=== PATIENT | female | born 1970 | race Caucasian/White ===

== ENCOUNTER 2020-09-04 15:29 | Outpatient (REF) | payer BC, SELFPAY | END 2020-09-04 15:30 | disposition home or self-care (01) | LOC: HO.LAB 15:29 | PROVIDERS: Visit Provider Internal Medicine | DX: Z20.822 Contact with and (suspected) exposure to COVID-19 (principal) | CPT/HCPCS: 36415; C9803; U0003; U0005 ==

== ENCOUNTER → 2020-09-13 15:54 | Outpatient (BNVA) | payer BC, SELFPAY | PROVIDERS: PCP Internal Medicine; Visit Provider Surgery ==

== ENCOUNTER 2020-11-22 16:16 | Outpatient (REF) | payer BC, SELFPAY ==
--- NOTE | ~2020-11-22 | MR_ITS ---
EXAMINATION: MR BREAST WITHOUT AND WITH CONTRAST, BILATERAL CLINICAL INFORMATION: High-risk screening. Family history breast cancer. COMPARISON: MRI 12/06/2019, 10/26/2018 TECHNIQUE: Imaging was performed with a dedicated breast coil. Prior to the administration of contrast, bilateral axial T1 and bilateral axial T2 weighted sequences were obtained. After the uneventful administration of?10 mL of Gadavist, dynamic contrast-enhanced VIBRANT series through the breasts in the axial plane were performed. Subtracted images were performed and reviewed. A delayed sagittal sequence through both breasts was acquired. Additionally, CAD post-processing, including maximum intensity projections, 3-D reconstructions and kinetic analysis, were performed an independent workstation and reviewed by the interpreting radiologist is a portion of this exam. FINDINGS: The patient's fibroglandular tissue demonstrates moderate background enhancement. LEFT BREAST: No suspicious masslike or non-masslike enhancement. No abnormal skin thickening or nipple retraction. No abnormal architectural distortion. Review of the T2 weighted images demonstrates no fibrocystic changes or dilated ducts. Review of kinetic images reveals no additional findings. RIGHT BREAST: No suspicious masslike or non-masslike enhancement. No abnormal skin thickening or nipple retraction. No abnormal architectural distortion. Review of the T2 weighted images demonstrates no fibrocystic changes or dilated ducts. Review of kinetic images reveals no additional findings. There is no suspicious internal mammary chain or axillary adenopathy. Limited views of the chest and abdomen are unremarkable. MR/MR breast BI wo/w con IMPRESSION: No MR specific evidence of malignancy. ASSESSMENT: LEFT BREAST: BI-RADS 1-Negative RIGHT BREAST: BI-RADS 1-Negative RECOMMENDATIONS: Clinical follow-up. Continued annual mammographic surveillance. Further breast MRI as risk factors dictate.
== END 2020-11-22 16:17 | disposition home or self-care (01) ==
LOC: HO.MRI 16:16
PROVIDERS: Visit Provider Surgery
DX: Z12.31 Encounter for screening mammogram for malignant neoplasm of breast (principal)
CPT/HCPCS: 77049; A9585

== ENCOUNTER 2021-06-19 13:39 | Outpatient (REF) | payer BC, SELFPAY ==
[2021-06-19 14:09] LABS: COVID-19 Test Positive (Negative)
== END 2021-06-19 13:40 | disposition home or self-care (01) ==
LOC: HO.LAB 13:39
PROVIDERS: Visit Provider Internal Medicine
DX: Z20.822 Contact with and (suspected) exposure to COVID-19 (principal)
CPT/HCPCS: 36415; 87635; C9803

== ENCOUNTER 2021-08-09 13:33 | Outpatient (REF) | payer BC, SELFPAY ==
--- NOTE | ~2021-08-09 | MM_ITS ---
EXAMINATION: MM SCREENING DIGITAL BREAST TOMOSYNTHESIS, BILATERAL CLINICAL INFORMATION: Screening. Asymptomatic. Family history breast cancer, mother. The lifetime risk of breast cancer based on the Tyrer-Cuzick Model is 19.5%. COMPARISON: Mammography: 04/18/2019, 04/07/2018, outside mammography 11/14/2016, 11/12/2015 ([facility]), MRI breasts 11/22/2020. TECHNIQUE: Digital breast tomosynthesis is performed in both the craniocaudal and mediolateral oblique views along with computer-aided detection (CAD). Synthesized 2D images are generated from the tomosynthesis. FINDINGS: There are scattered areas of fibroglandular density (ACR BI-RADS breast composition Category b). There are no significant masses, abnormal calcifications, or other abnormalities. Parenchymal pattern is similar to prior studies. There is no developing density or architectural abnormality. The axilla and skin contours are unremarkable. No significant changes. MM/MM tomosynthesis screening BI IMPRESSION: No mammographic evidence of malignancy. ASSESSMENT: BI-RADS 1: Negative RECOMMENDATION: Routine annual mammography screening. This patient's information was entered into a reminder system with a target due date for their next mammogram.
== END 2021-08-09 13:34 | disposition home or self-care (01) ==
LOC: HO.MAMMO 13:33
PROVIDERS: Absent Provider Nurse Practitioner Adult Health; PCP Internal Medicine; Visit Provider Surgery
DX: Z12.31 Encounter for screening mammogram for malignant neoplasm of breast (principal)
CPT/HCPCS: 77063; 77067

== ENCOUNTER → 2021-09-04 15:51 | Outpatient (BNVA) | payer BC, SELFPAY | PROVIDERS: PCP Internal Medicine; Visit Provider Surgery | DX: Z91.89 Other specified personal risk factors, not elsewhere classified (principal) ==

== ENCOUNTER 2022-01-15 15:00 | Outpatient (REF) | payer BC, SELFPAY ==
--- NOTE | ~2022-01-15 | MR_ITS ---
EXAMINATION: MR BREAST WITHOUT AND WITH CONTRAST, BILATERAL CLINICAL INFORMATION: High risk screening. Patient questionnaire indicates mother and grandmother diagnosed with breast cancer in their 60s. The estimated lifetime risk of developing breast cancer is 20%. COMPARISON: Portions of a previous study 11/22/2020, Mammography (nondiagnostic monitor review): 08/09/2021. TECHNIQUE: A 1.5 T system and a dedicated breast coil. T1-weighted sequences without fat-saturation were obtained prior to the administration of contrast. Fat-saturated T1 and T2-weighted sequences were also acquired. The patient received 10 mL of IV gadolinium-based contrast, Gadavist. Multiple sequential dynamic T1-weighted sequences were obtained through both breasts with fat-saturation. Subtracted images were reviewed. CAD postprocessing with 3-D reconstructions, maximum intensity projections and kinetic analysis was performed by the interpreting radiologist at an independent workstation and reviewed as a portion of this exam. FINDINGS: There is some motion artifact which limits the exam. Amount of Remaining Fibroglandular Signal: There are scattered areas of fibroglandular tissue (ACR BI-RADS breast composition category B).* Background Parenchymal Enhancement: Minimal. Symmetry of Background Enhancement: Symmetric. RIGHT BREAST: There are no suspicious findings. Masses: There are no suspicious enhancing masses. Non-mass Enhancement: There is no suspicious non-mass enhancement. Focus: There are no suspicious enhancing foci. Non-enhancing Findings: Associated Findings: There are no suspicious associated findings. Kinetic Curve Assessment: Initial Phase: There are no suspicious areas of color signal. Delayed Phase: There are no areas of washout kinetics. LEFT BREAST: There are no suspicious findings. Masses: There are no suspicious enhancing masses. Non-mass Enhancement: There is no suspicious non-mass enhancement. Focus: There are no suspicious enhancing foci. Non-enhancing Findings: Associated Findings: There are no suspicious associated findings. Kinetic Curve Assessment: Initial Phase: There are no areas of suspicious color signal. Delayed Phase: There are no areas of washout kinetics. The axillary lymph nodes are morphologically normal. No suspicious internal mammary lymph nodes are seen. No suspicious abnormality in the visualized portions of chest or abdomen. MR/MR breast BI wo/w con IMPRESSION: 1. No MR evidence of malignancy. 2. No suspicious interval change. ASSESSMENT: Right Breast: ACR BI-RADS 1: Negative examination. Left Breast: ACR BI-RADS 1: Negative examination. RECOMMENDATIONS: Recommend annual high risk screening MRI in patients with an estimated lifetime risk of developing breast cancer equal to or greater than 20%.
== END 2022-01-15 15:01 | disposition home or self-care (01) ==
LOC: HO.MRI 15:00
PROVIDERS: PCP Internal Medicine; Visit Provider Surgery
DX: Z91.89 Other specified personal risk factors, not elsewhere classified (principal); Z80.3 Family history of malignant neoplasm of breast
CPT/HCPCS: 77049; A9585

== ENCOUNTER 2022-08-12 15:51 | Outpatient (REF) | payer BC, SELFPAY ==
--- NOTE | ~2022-08-12 | MM_ITS ---
EXAMINATION: MM SCREENING DIGITAL BREAST TOMOSYNTHESIS, BILATERAL CLINICAL INFORMATION: Screening. Asymptomatic. The lifetime risk of breast cancer based on the Tyrer-Cuzick Model is 18.8%. COMPARISON: Mammography: August 09, 2021 and studies dating back to November 12, 2015 TECHNIQUE: Digital breast tomosynthesis is performed in both the craniocaudal and mediolateral oblique views along with computer-aided detection (CAD). Synthesized 2D images are generated from the tomosynthesis. FINDINGS: There are scattered areas of fibroglandular density (ACR BI-RADS breast composition Category b). There are no significant masses, abnormal calcifications, or other abnormalities. MM/MM tomosynthesis screening BI IMPRESSION: No significant changes from prior exam. ASSESSMENT: BI-RADS 1: Negative RECOMMENDATION: Routine annual mammography screening. This patient's information was entered into a reminder system with a target due date for their next mammogram.
== END 2022-08-12 15:52 | disposition home or self-care (01) ==
LOC: HO.MAMMO 15:51
PROVIDERS: Visit Provider Internal Medicine
DX: Z12.31 Encounter for screening mammogram for malignant neoplasm of breast (principal)
CPT/HCPCS: 77063; 77067

== ENCOUNTER → 2022-09-03 14:35 | Outpatient (BNVA) | payer SELFPAY | PROVIDERS: PCP Internal Medicine; Visit Provider Surgery | DX: Z91.89 Other specified personal risk factors, not elsewhere classified (principal); Z80.3 Family history of malignant neoplasm of breast ==

== ENCOUNTER 2023-03-24 16:20 | Outpatient (REF) | payer BC, SELFPAY ==
--- NOTE | ~2023-03-24 | MR_ITS ---
EXAMINATION: MR BREAST WITHOUT AND WITH CONTRAST, BILATERAL CLINICAL INFORMATION: 53-year-old for high-risk screening mother and grandmother with breast cancer COMPARISON: MRI 01/15/2022, 11/22/2020, 12/06/2019 and 10/26/2018. Correlation to mammogram of 08/12/2022 TECHNIQUE: Imaging was performed with a dedicated breast coil. Prior to the administration of contrast, bilateral axial T1 and bilateral axial T2 weighted sequences were obtained. After the uneventful administration of?10 mL of Gadavist, dynamic contrast-enhanced VIBRANT series through the breasts in the axial plane were performed. Subtracted images were performed and reviewed. A delayed sagittal sequence through both breasts was acquired. Additionally, CAD post-processing, including maximum intensity projections, 3-D reconstructions and kinetic analysis, were performed an independent workstation and reviewed by the interpreting radiologist is a portion of this exam. FINDINGS: The patient's fibroglandular tissue demonstrates minimal background enhancement. LEFT BREAST: No suspicious masslike or non-masslike enhancement. No abnormal skin thickening or nipple retraction. No abnormal architectural distortion. Review of the T2 weighted images demonstrates no fibrocystic changes or dilated ducts. Review of kinetic images reveals no additional findings. RIGHT BREAST: No suspicious masslike or non-masslike enhancement. No abnormal skin thickening or nipple retraction. No abnormal architectural distortion. Review of the T2 weighted images demonstrates no fibrocystic changes or dilated ducts. Review of kinetic images reveals no additional findings. There is no suspicious internal mammary chain or axillary adenopathy. Limited views of the chest and abdomen are unremarkable. MR/MR breast BI wo/w con IMPRESSION: No MR specific evidence of malignancy. ASSESSMENT: LEFT BREAST: BI-RADS 1-Negative RIGHT BREAST: BI-RADS 1-Negative RECOMMENDATIONS: Routine mammographic imaging as per most recent study and MRI as per high-risk protocol.
[2023-03-24] MEDS: gadobutroL 10 ML VIAL IVPUSH (17:40)
== END 2023-03-24 16:21 | disposition home or self-care (01) ==
LOC: HO.MRI 16:20
PROVIDERS: PCP Internal Medicine; Visit Provider Surgery
DX: Z91.89 Other specified personal risk factors, not elsewhere classified (principal); Z80.3 Family history of malignant neoplasm of breast
CPT/HCPCS: 77049; A9585

== ENCOUNTER 2023-04-09 20:53 | Emergency (ER) | payer BC, SELFPAY ==
--- NOTE | ~2023-04-09 | CT_ITS ---
EXAMINATION: CT ABDOMEN AND PELVIS WITH CONTRAST CLINICAL INFORMATION: Mid/lower abdominal pain, diarrhea COMPARISON: None available. TECHNIQUE: Multidetector volumetric images were obtained from the superior aspect of the liver through the pubic symphysis following administration 85 mL of Omnipaque 350 intravenous contrast. Sagittal and coronal reformatted images were obtained on the technologist's workstation. Oral contrast: No This CT examination was performed using dose optimization techniques as appropriate, variously including the following: *Automated exposure control *Adjustment of mA and/or kV according to patient size (this includes techniques or standardized protocols for targeted exams where dose is matched to indication/reason for exam; i.e. extremities or head) *Use of iterative reconstruction technique DLP: 787 mGy-cm FINDINGS: LUNG BASES: The visualized lung bases are unremarkable. LIVER, GALLBLADDER, AND BILIARY TREE: The liver is normal in size, shape, and attenuation. No focal hepatic lesion or biliary ductal dilatation is present. The gallbladder is unremarkable with no evidence of radiopaque gallstones, gallbladder wall thickening, or obvious pericholecystic inflammatory changes. PANCREAS: Unremarkable. SPLEEN: Unremarkable. ADRENAL GLANDS: Unremarkable. KIDNEYS AND URETERS: Bilateral nephrograms are symmetric. No hydronephrosis or obstructing calculus identified. BLADDER: Unremarkable. GASTROINTESTINAL TRACT: No evidence of bowel obstruction. There is colonic diverticulosis with associated inflammation at the descending/sigmoid colon junction consistent with diverticulitis. No pericolonic abscess or free air identified. The appendix is unremarkable. No free fluid identified. ABDOMINAL WALL: No significant hernia is appreciated. LYMPH NODES: Normal. VASCULAR: Scattered atherosclerotic calcification. PELVIC VISCERA: Unremarkable. OSSEOUS STRUCTURES: Unremarkable. CT/CT abdomen pelvis w IV con IMPRESSION: Diverticulitis at the descending/sigmoid colon junction. Correlation with recent or followup colonoscopy is advised to exclude an underlying mass lesion.
[2023-04-09 21:38] VITALS: BP 107/82; PULSE 69; RESP 18; TEMP 36.4; O2SAT 99; BMI 37.6
--- NOTE | 2023-04-09 21:53 | ED_ITS ---
HPI - Abdominal Pain General Chief Complaint: Abdominal Pain Stated Complaint: abd pain Time Seen by Provider: 04/09/23 21:21 Source: patient Mode of arrival: ambulatory Limitations: no limitations History of Present Illness HPI narrative: patient is a 53-year-old female who presents emergency department for evaluation of abdominal pain. She states that 4 nights ago she experienced an episode of awaking with cold sweats, severe abdominal bloating that was alleviated after having vomited and loose liquid diarrhea without hematochezia or melena. She endorses episodes that occur like this 3-4 times annually, at this time with unknown etiology. She has mentioned it to her primary care provider but has not had any significant workup for it. Her pain and bloating was resolved after episode of vomiting and diarrhea. following that she felt constipated with significant abdominal distention and pain. Typically she moves her bowels daily. She tried Dulcolax in addition to magnesium citrate last night. She does endorse having a liquid stool, but continues to have pain. Localizes pain to the umbilical region. She has had no further episodes of vomiting since 4 days ago. Denies fevers, URI symptoms, known sick contacts, chest pain, shortness of breath. She has had a colonoscopy approximately 2 years ago with polypectomy that was reportedly benign. She has a significant family gastrointestinal history; a brother and a maternal cousin with colon cancer, a father with ulcerative colitis, and mother with diverticulitis and Crohn's disease. Related Data Home Medications Medication Instructions Recorded Confirmed atorvastatin 80 mg tablet 80 mg PO DAILY 09/13/20 09/03/22 semaglutide 1 mg/dose (4 mg/3 mL) mg subcut 09/04/21 09/03/22 subcutaneous pen injector (Ozempic) Previous Rx's Medication Instructions Recorded amoxicillin 875 mg-potassium 1 tab PO BID #20 tabs 04/10/23 clavulanate 125 mg tablet ondansetron 4 mg disintegrating 4 mg PO Q6-8H PRN nausea and 04/10/23 tablet vomiting #20 tabs pantoprazole 40 mg tablet,delayed 40 mg PO DAILY #30 tabs 04/10/23 release (Protonix) Allergies Allergy/AdvReac Type Severity Reaction Status Date / Time No Known Allergies Allergy Verified 09/03/22 14:57 Review of Systems Review of Systems Yes all other systems are reviewed and are negative PMFSH Past Medical History Attestation statement: The following information was validated with the patient. Source: old records reviewed Medical History At high risk for breast cancer Family history of breast cancer Family history of ovarian cancer Surgical History History of delivery (1996) Family History Family History Maternal Aunt Ovarian cancer Family/Other Colon cancer Mother Breast cancer Brother Colon cancer Daughter Endometriosis Social History Social History Alcohol intake: never Patient Tobacco Use Status: Never used Tobacco Smoked in Last 30 Days: No Use of substances other than those prescribed or required for medical reasons: No Advance Directives: No Advance Directives Information Provided: No Physical Exam ED Vital Signs: Vital Signs - 24 hr 04/09/23 21:38 Temperature 97.5 F Pulse Rate 69 Respiratory Rate 18 Blood Pressure 107/82 Pulse Oximetry 99 Oxygen Delivery Method Room Air BMI result Body Mass Index 37.6 Appearance: Alert.?Oriented to person, place and time. No acute distress.?Normal affect. Eyes: Pupils equal, round and reactive to light.? ENT: Pharynx normal.?? Neck: Normal inspection.? Neck supple.?? CVS: Heart sounds normal. Normal heart rate and rhythm.? Pulses normal.?? Respiratory: No respiratory distress.? Lung sounds clear to auscultation bilaterally?? Abdomen: Soft With mid ABD tenderness and diffuse lower abdominal tenderness upon palpation. No rigidity. No guarding. No rebound tenderness. No CVA tenderness. Normoactive bowel sounds. No pulsatile mass.?? Skin: Skin warm and dry.? Normal skin color.? Extremities: No lower extremity edema.? Neuro: Moves all extremities spontaneously. Sensation intact bilaterally. CN II- XII intact. No focal neuro deficits. Ambulates with normal steady gait. Course Reevaluation(s) Reevaluation #1: Patient noted to have elevated inflammatory markers with ESR of 27 and CRP of 3.39 concern for possible underlying IBD, though she has had a colonoscopy within the last 2 years which reportedly did not show any evidence of this. lipase is mildly elevated at 118, no right upper quadrant tenderness upon evaluation, bedside ultrasound performed by ED attending Dr. Crowder without concerning findings, less likely acute cholecystitis at this time. CT of abdomen and pelvis at this time revealing uncomplicated diverticulitis; CBC is without leukocytosis or anemia, and CMP is otherwise overall unremarkable. Will treat diverticulitis with oral Augmentin at this time she received first dose in the emergency department. Reviewed worrisome signs and symptoms that would warrant re-evaluation in the emergency department. All questions answered. Advised outpatient follow-up with Gastroenterology. Time: 00:03 Medical Decision Making Medical Decision Making MDM Narrative: Patient is a 53 old female who presents emergency department for evaluation of abdominal pain as per HPI. At the time of my examination she is overall well- appearing, nontoxic, afebrile without tachycardia. She does have notable tenderness upon palpation of the abdomen. Will obtain CBC to evaluate for leukocytosis/ anemia, CMP and lipase to evaluate for abnormal electrolytes /abnormal renal function/ abnormal hepatic/biliary function, EKG and troponin to evaluate for ischemia/ACS, CT of the abdomen and pelvis, and Urinalysis. Differential Diagnosis Differential Diagnoses: The differential diagnosis associated with the presentation includes ( diverticulitis, colitis, appendicitis, bowel obstruction, IBS, IBD, gastroenteritis, constipation) Admission/Observation Consideration of admission/observation: Escalation of care including admission/observation considered ( I considered admission for abdominal pain, see course narrative for further detail) Lab Data MDM Lab Attestation statement: I reviewed the patient's lab results. ( see course narrative for further detail) 04/09/23 22:11 04/09/23 22:11 Labs: Lab Results 04/09/23 04/09/23 Range/Units 22:11 23:07 WBC 6.1 (4.8-10.8) X10*3/uL RBC 4.26 (4.20-5.50) X10*6/uL Hgb 13.0 (12.0-16.0) g/dl Hct 39.3 (37.0-47.0) % MCV 92.3 (80.0-98.0) fL MCH 30.5 (27.0-33.0) pg MCHC 33.1 (31.0-35.0) g/dl RDW 12.5 (11.0-16.0) % Plt Count 250 (160-400) X10*3/uL MPV 10.2 (9.4-12.3) fL Immature Gran % (Auto) 0.2 (0.0-0.4) % Neut % (Auto) 61.5 (45-73) % Lymph % (Auto) 26.0 (20-40) % [place] % (Auto) 9.0 (2-11) % Eos % (Auto) 2.5 (0-4) % Baso % (Auto) 0.8 (0-2) % Lymph # (Auto) 1.6 (1.2-4.9) X10*3/uL [place] # (Auto) 0.6 (0.1-1.2) X10*3/uL Eos # (Auto) 0.2 (0.0-0.4) X10*3/uL Baso # (Auto) 0.1 (0.0-0.2) X10*3/uL Abs Immat Gran (auto) 0.01 (0.00-0.03) X10*3/uL Absolute Neuts (auto) 3.8 (2.0-8.3) x10*3/uL Absolute Nucleated RBC 0.000 (0.0-0.012) X10*3/uL Nucleated RBC % (auto) 0.0 (0.0-0.2) /100WBC ESR 27 H (0-20) MM/HR Sodium 141 (135-145) mmol/L Potassium 4.0 (3.3-5.1) mmol/L Chloride 106 (96-108) mmol/L Carbon Dioxide 26 (22-29) mmol/L Anion Gap 13 (12-20) BUN 17 H (9-16) mg/dL Creatinine 0.75 (0.5-1.4) mg/dL Estim Creat Clear Calc 94.7 Estimated GFR > 60 Random Glucose 109 (60-115) mg/dL Calcium 9.7 (8.4-10.2) mg/dL Magnesium 2.3 (1.6-2.6) mg/dL Total Bilirubin 0.4 (0.0-1.0) mg/dL AST 22 (5-31) U/L ALT 26 (0-31) U/L Alkaline Phosphatase 77 (39-117) U/L C-Reactive Protein 3.39 H (< or = 0.50) mg/dL Total Protein 7.7 (6.5-8.0) g/dL Albumin 4.4 (3.5-5.0) g/dL Lipase 118 H (8-78) U/L Radiology Impression Discussion of test interpretation with radiology: I have reviewed the radiologist's reading. Radiologist Impression: CT/CT abdomen pelvis w IV con IMPRESSION: Diverticulitis at the descending/sigmoid colon junction. Correlation with recent or followup colonoscopy is advised to exclude an underlying mass lesion. Independent Historian Clinical information obtained from an independent historian. History obtained from or confirmed by: Spouse ( present at bedside who confirms history) Prescription Management I considered prescription management with: Antibiotic Medications Administered Discontinued Medications Generic Name Dose Route Start Last Admin Trade Name Freq PRN Reason Stop Dose Admin Amoxicillin/Clavulanate Potassium 875 mg 04/10/23 00:07 04/10/23 01:07 Amoxicillin/Potassium Clav 875 Mg Tablet PO 04/10/23 00:08 875 mg ONCE ONE Administration Sodium Chloride 1,000 mls @ 999 mls/hr 04/09/23 22:00 04/09/23 23:08 Ns IV 04/09/23 23:00 999 mls/hr .Q1H1M SHERIN Administration Iohexol 85 ml 04/09/23 23:28 04/09/23 23:28 Iohexol 350 Mg/Ml 100 Ml Infus..Btl IV 04/09/23 23:29 85 ml ONCE ONE Administration Discharge Plan Discharge Clinical Impression: Diverticulitis Patient Disposition: Home, Self-Care Instructions: Diverticulitis (ED), Diverticulitis Diet (ED) Additional Instructions: Clear liquids advance as tolerated Antibiotic as prescribed Follow-up with heel seat flap stapler for further evaluation including endoscopy Report to the ER if increased pain/fever Follow-up with your PCP for H pylori testing/endoscopy Prescriptions: New amoxicillin-pot clavulanate 875-125 mg tablet 1 tab PO BID Qty: 20 0RF pantoprazole [Protonix] 40 mg tablet,delayed release (DR/EC) 40 mg PO DAILY Qty: 30 0RF ondansetron 4 mg tablet,disintegrating 4 mg PO Q6-8H PRN (Reason: nausea and vomiting) Qty: 20 0RF No Action atorvastatin 80 mg tablet 80 mg PO DAILY Ozempic 1 mg/dose (4 mg/3 mL) pen injector subcut Referrals: Ira Holman MD [Physician] - 2 weeks
[2023-04-09 22:18] LABS: MANUAL DIFF FLAG NO
[2023-04-09 22:20] LABS: Basophils Absolute Auto 0.1 X10*3/uL (0.0-0.2); Basophils Percent Auto 0.8 % (0-2); Eosinophils Absolute Auto 0.2 X10*3/uL (0.0-0.4); Eosinophils Percent Auto 2.5 % (0-4); Hematocrit 39.3 % (37.0-47.0); Imm Gran Abs Auto 0.01 X10*3/uL (0.00-0.03); Imm Gran Pct Auto 0.2 % (0.0-0.4); Lymphocytes Absolute Auto 1.6 X10*3/uL (1.2-4.9); Mean Corpuscular HGB Conc 33.1 g/dl (31.0-35.0); Mean Corpuscular Hemoglobin 30.5 pg (27.0-33.0); Mean Corpuscular Volume 92.3 fL (80.0-98.0); Mean Platelet Volume 10.2 fL (9.4-12.3); Monocytes Absolute Auto 0.6 X10*3/uL (0.1-1.2); Neutrophils Absolute Auto 3.8 x10*3/uL (2.0-8.3); Neutrophils Percent Auto 61.5 % (45-73); Platelet Count 250 X10*3/uL (160-400); Red Blood Count 4.26 X10*6/uL (4.20-5.50); Red Cell Distribution Width 12.5 % (11.0-16.0); White Blood Count 6.1 X10*3/uL (4.8-10.8)
[2023-04-09 22:35] LABS: Alanine Aminotransferase 26 U/L (0-31); Albumin Level 4.4 g/dL (3.5-5.0); Alkaline Phosphatase 77 U/L (39-117); Anion Gap 13 (12-20); Aspartate Amino Transferase 22 U/L (5-31); Bilirubin Total 0.4 mg/dL (0.0-1.0); Blood Urea Nitrogen 17 mg/dL (9-16); C Reactive Protein 3.39 mg/dL (< or = 0.50); Calcium 9.7 mg/dL (8.4-10.2); Carbon Dioxide 26 mmol/L (22-29); Chloride 106 mmol/L (96-108); Creatinine Clr Calc Pharmacy 94.7; Estimated Glomerular Filt Rate > 60; Glucose Random 109 mg/dL (60-115); Lipase 118 U/L (8-78); Magnesium 2.3 mg/dL (1.6-2.6); Sodium 141 mmol/L (135-145); Total Protein 7.7 g/dL (6.5-8.0)
[2023-04-09] MEDS: 0.9 % Sodium Chloride 1,000 ML 999 ML IV (23:08)
[2023-04-09] MEDS: iohexoL 350 MG/ML 100 ML INFUS..BTL 85 ML IV (23:28)
[2023-04-09 23:45] LABS: Erythrocyte Sedimentation Rate 27 MM/HR (0-20)
[2023-04-10] MEDS: Amoxicillin/Potassium Clav 875 MG TABLET PO (01:07)
[2023-04-10 01:10] VITALS: BP 110/68; PULSE 68; RESP 18; O2SAT 97
== END 2023-04-10 01:15 | disposition home or self-care (01) ==
PROVIDERS: Nurse Practitioner Family; Emergency Provider Internal Medicine; PCP Internal Medicine
DX: K57.32 Diverticulitis of large intestine without perforation or abscess without bleeding (principal)
CPT/HCPCS: 36415; 74177; 80053; 83690; 83735; 85025; 85652; 86140; 96360; 99284; Q9967

== ENCOUNTER 2023-07-03 09:50 | Outpatient (AMB) | payer BC, SELFPAY ==
--- NOTE | 2023-07-03 10:00 | MHC.OFFVIS ---
Intake Vital Signs 07/03/23 10:21 Height 5 ft 3 in Weight 207 lb BMI 36.7 BP 137/65 Blood Pressure Location Lt brachial Position Sitting Pulse 67 Intake Visit Reasons: possible IBD Intake Note: New consult for possible IBD. Also EGD screening. Patient cc: N/V on and off, acid reflex, abdominal pain with bloating come and go, constant diarrhea. Denies any other GI issues. Commercial Photographer Required: No Accompanied by: Spouse Allergies No Known Allergies Allergy (Verified 07/03/23 10:00) HPI possible IBD HPI Details 53 yr old f with hx of high cholesterol here for assessment she had been having sx with bloating and abdominal for years she went to the ED 03/[address] scan which reveale diverticulitis with mass not excluded she has changed diet and eating more healthy which seems to have helped her sx she had noted bloating, satiety she has gurglin gtype of diffuse abdominal pain, gas, 5/10 in severity, wwith change in diet has improved a lot stress can make her sx worse, not sure about foods she had one epsiode of blood mixed with stool few months back she does have episodic nausea, and acid reflux worse with bending she is on ozempic for few years for DM Medical History At high risk for breast cancer Family history of breast cancer Family history of ovarian cancer Surgical History History of delivery (1996) colonoscopy 2020-- polyp removed Family History Maternal Aunt Ovarian cancerFamily/Other Colon cancerMother Breast cancerBrother Colon cancerDaughter Endometriosis Social History Alcohol intake: current Alcohol intake frequency: holidays/special occasions only Patient Tobacco Use Status: Never used Tobacco ROS: Constitutional : No Weight loss, No Fever, No Chills ENT/Mouth : No sore throat, No Rhinorrhea Eyes: No Swelling, No Redness Cardiovascular : No Chest Pain, No SOB, No Edema Respiratory : No Cough, No Sputum, No Wheezing Gastrointestinal : see HPI Genitourinary : NO Dysuria, No Urinary Frequency, No Hematuria, No Urgency Musculoskeletal : No joint pain, No Myalgias, No Joint Swelling Skin : No Skin Lesions, No rash Neuro : No Weakness, No Numbness, No Dizziness, No Headache Psych : No Anxiety/Panic, No Depression Heme/Lymph: No Bruising, No Lymphadenopathy Endocrine : No Polyuria, No Polydipsia All other systems reviewed and are negative. EXAM: GENERAL: The patient is well developed and nontoxic-overweight VITAL SIGNS:see workflow HEENT: Nonicteric sclerae, PERRLA, EOMI. Oropharynx clear. Moist mucous membranes. Conjunctivae appear well perfused. No thyroid mass. CHEST: Chest wall is nontender. HEART: Regular rate and rhythm without murmurs. LUNGS: Clear to auscultation bilaterally. ABDOMEN: Soft, positive bowel sounds, nontender, no organomegaly.no flank tenderness SKIN: No rash, no excessive bruising, petechiae, or purpura. NEUROLOGIC: Cranial nerves II-XII intact without motor/sensory deficit. LABS: 03/2023--nml apart from cRP 3, mild lipase elvation CT: reviewed: constipation, diverticulitis, early osteopenia in vertebrae a/P: 1/ bloating,f ullness,constipation possibly from ozempic use, FH of CRC and assorted diseases incl UC in father--r/o IBD, neoplasia, GOO, polyps PLAN: 1/ repeat labs today, incl TSH and CRP, celiac panel 2/ EGD and colonoscopy 3/ advised on ca and vit d supplement, talk to PCP about osteoporosis screening [facility] Medical History (Updated 07/03/23 @ 10:49 by Ira Holman MD) At high risk for breast cancer Family history of breast cancer Family history of ovarian cancer Surgical History (Updated 07/03/23 @ 10:24 by Talya Garner) Hx of colonoscopy History of delivery (1996) Family History (Updated 07/03/23 @ 10:29 by Talya Garner) Maternal Aunt Ovarian cancer Family/Other Colon cancer Mother Breast cancer Brother Colon cancer Daughter Endometriosis Father Colostomy in place Social History Alcohol intake: never Patient Tobacco Use Status: Never used Tobacco Physical Exam Vital Signs: Last Vital Signs Pulse 67 07/03/23 10:21 BP 137/65 07/03/23 10:21 BMI result Body Mass Index 36.7 Assessment & Plan Assessment & Plan (1) Constipation by delayed colonic transit: Code(s): K59.01 - Slow transit constipation Plan: a/P: 1/ bloating,f ullness,constipation possibly from ozempic use, FH of CRC and assorted diseases incl UC in father--r/o IBD, neoplasia, GOO, polyps PLAN: 1/ repeat labs today, incl TSH and CRP, celiac panel 2/ EGD and colonoscopy Orders: Orders Thyroid Peroxidase Antibodies Today K59.01 - Slow transit constipation Transglutaminase Ab IgG Today G89.29 - Other chronic pain, K59.01 - Slow transit constipation, R10.33 - Periumbilical pain C Reactive Protein Today K59.01 - Slow transit constipation TSH reflex Free T4 Today K59.01 - Slow transit constipation Transglutaminase IgA Today K59.01 - Slow transit constipation Giardia Ag Stool EIA Today K59.01 - Slow transit constipation Medications: New sodium,potassium,mag sulfates 17.5-3.13-1.6 gram (Suprep Bowel Prep Kit) DILUTE; drink 1/2 at 6-8 pm and half at 11 PM- 1AM 354 mL 0RF Coding Level of Care Code New Pt Level 4 (83021) Diagnoses Constipation by delayed colonic transit K59.
[2023-07-03 10:21] VITALS: BP 137/65; PULSE 67; BMI 36.7
== END 2023-07-03 10:55 | disposition home or self-care (01) ==
PROVIDERS: PCP Internal Medicine; Visit Provider Internal Medicine Gastroenterology
DX: K59.01 Slow transit constipation (principal)
CPT/HCPCS: 99204

== ENCOUNTER → 2023-07-03 09:50 | Outpatient (BNVA) | payer BC, SELFPAY | PROVIDERS: PCP Internal Medicine; Visit Provider Internal Medicine Gastroenterology ==

== ENCOUNTER 2023-08-19 15:56 | Outpatient (REF) | payer BC, SELFPAY | END 2023-08-19 15:57 | disposition home or self-care (01) | LOC: HO.MAMMO 15:56 | PROVIDERS: PCP Internal Medicine; Visit Provider Internal Medicine | DX: Z12.31 Encounter for screening mammogram for malignant neoplasm of breast (principal) | CPT/HCPCS: 77063; 77067 ==

== ENCOUNTER → 2023-08-19 16:00 | Outpatient (BNV) | payer BC, SELFPAY | PROVIDERS: PCP Internal Medicine; Visit Provider Radiology Diagnostic Radiology | DX: Z12.31 Encounter for screening mammogram for malignant neoplasm of breast (principal) | CPT/HCPCS: 77063; 77067 ==

== ENCOUNTER 2023-10-22 08:59 | Day surgery (SDC) | payer BC, SELFPAY ==
[2023-10-20 14:29] VITALS: BMI 36.7
--- NOTE | 2023-10-21 10:14 | HO.ANESPROP2 ---
Documented by User: Kiera Cr NP 10/21/23 10:14 HPI - Anesthesia Eval Consult details Narrative: 53yo F for Upper Endoscopy and Colonoscopy PMFSH Active Problems Active Problems: All Active Problems (Updated 07/03/23 @ 10:49 by Ira Holman MD) Constipation by delayed colonic transit (Acute) At high risk for breast cancer (Acute) Family history of breast cancer (Acute) Family history of ovarian cancer (Acute) Past Medical History Medical History At high risk for breast cancer Family history of breast cancer Family history of ovarian cancer Family History Family History Maternal Aunt Ovarian cancer Family/Other Colon cancer Mother Breast cancer Brother Colon cancer Daughter Endometriosis Father Colostomy in place Surgical History Surgical History History of dental surgery Hx of colonoscopy History of delivery (1996) Social History Social History Alcohol intake: never Patient Tobacco Use Status: Former Tobacco user Use of substances other than those prescribed or required for medical reasons: No Are you DNR?: No Advance Directives: No Advance Directives Information Provided: Yes Meds Allergies Allergy/AdvReac Type Severity Reaction Status Date / Time No Known Allergies Allergy Verified 07/03/23 10:00 Home Medications ?Medication ?Instructions ?Recorded ?Confirmed ?Last Taken ?Type No Known Home Meds 10/22/23 10/22/23 Unknown History Exam Height,Weight and Vital Signs: Height 5 ft 3 in Weight 93.894 kg Assessment and Plan Assessment Anesthesia Assessment: Chart Reviewed Documented by User: Snow Zhou MD 10/22/23 09:44 PMFSH Active Problems Active Problems: All Active Problems (Updated 10/22/23 @ 09:32 by Snow Zhou MD) Constipation by delayed colonic transit (Acute) At high risk for breast cancer (Acute) Family history of breast cancer (Acute) Family history of ovarian cancer (Acute) H/o prediabetes. Was put on ozempic but stopped secondary to side effects. Last dose 06/2023 Past Medical History Medical History At high risk for breast cancer Family history of breast cancer Family history of ovarian cancer Family History Family History Maternal Aunt Ovarian cancer Family/Other Colon cancer Mother Breast cancer Brother Colon cancer Daughter Endometriosis Father Colostomy in place Family history of problems with anesthesia: No Surgical History Surgical History History of dental surgery Hx of colonoscopy History of delivery (1996) History of Problems with Anesthesia: No Social History Social History Alcohol intake: never Patient Tobacco Use Status: Former Tobacco user Use of substances other than those prescribed or required for medical reasons: No Are you DNR?: No Advance Directives: No Advance Directives Information Provided: Yes Meds Allergies Allergy/AdvReac Type Severity Reaction Status Date / Time No Known Allergies Allergy Verified 07/03/23 10:00 Home Medications ?Medication ?Instructions ?Recorded ?Confirmed ?Last Taken ?Type No Known Home Meds 10/22/23 10/22/23 Unknown History Exam Height,Weight and Vital Signs: Height 5 ft 3 in Weight 93.894 kg Vital Signs Temp Pulse Resp BP Pulse Ox O2 Del Method 10/22/23 09:22 98.4 F 65 16 124/87 93 Room Air Airway Mallampati Class: II TM Dist: >3cm Neck ROM: Full Loose/Missing/Broken Teeth: Yes (Missing top front. Top front teeth veneers/caps. Dental surgery 9 days ago) Heart: RRR Lungs: CTAB Assessment and Plan Assessment Anesthesia Assessment: Anesthesia Plan Discussed and Chart Reviewed Final Anesthetic Review Family History of Problems with Anesthesia: No History of Problems with Anesthesia: No NPO: Yes ASA Class: II Final Preanesthetic Review: No Changes in Pt Med Stat, Meds/Allgs Chart Reviewed, Consent Obtained/Reviewed and Anes Risks/Benef Reviewed Patient Risk: Low Procedure Risk: Low Assessment/Block/Sedation in SS: Assess/Block/Sedation-SS Anesthetic Plan Anesthetic Plan: MAC: and TIVA Disposition: Standard PACU
[2023-10-22 09:08] VITALS: BMI 38.0
--- NOTE | 2023-10-22 09:09 | MHC.SHP ---
Pre-Procedural Eval Section A - 24 Hr Update-Section A only Date of Service: 10/22/23 Section B - Complete if H&P > 30 days Chief Complaint: Slow transit constipation, Periumbilical pain Relevant Family History (Specify if Yes): No Relevant Social History: None Present Medications: None Medical History: Significant History (At high risk for breast cancer Family history of breast cancer Family history of ovarian cancer) History of Previous Operations: Relevant previous surgery/procedure and date(s) (History of delivery (1996) colonoscopy 2020-- polyp removed ) Allergies: Allergies Allergy/AdvReac Type Severity Reaction Status Date / Time No Known Allergies Allergy Verified 07/03/23 10:00 Review of Systems Sugical H&P ROS: Negative: Constitution, Cardiovascular, Respiratory, Neurological, Psychiatric, Hem-Onc, Allergic/Immunologic, Gastrointestinal, Genitourinary, Musculoskeletal, Integumentary, Endocrine and Eyes/Ears/Nose/Throat Exam Surgical H&P Exam: Normal: HEENT, Normal: Heart, Normal: Lungs, Normal: Extremities, Normal: Abdomen, Normal: Skin and Normal: Neurological Plan Diagnosis/Plan: Unchanged I have reviewed the history and physical and performed a pertinent physical examination on my patient. No changes have occurred unless specified. Time Spent With Patient Time: Total time managing care of this patient today ____ minutes.
[2023-10-22 09:22] VITALS: BP 124/87; PULSE 65; RESP 16; TEMP 36.9; O2SAT 93
[2023-10-22] MEDS: Lactated Ringers 1,000 ML 100 ML IVCONT (09:36)
--- NOTE | 2023-10-22 10:07 | P.OP_ITS ---
Operative Note Operative Note Date of Service: 10/22/23 Narrative: Operative Information Procedure Description: EGD, Colonoscopy Indication: abnormal bowel habit, abdominal pain Anesthesia: MAC FLEXIBLE TRANSORAL UPPER GASTROINTESTINAL ENDOSCOPY AND COLONOSCOPY PROCEDURE NOTE UPPER ENDOSCOPY Consent: Indications for the procedure and potential complications of bleeding, perforation, reaction to medications and missed diagnosis were discussed with the patient and informed consent was obtained. Instrument: Olympus GIF H 190 J mid size upper endoscope Monitoring: Vital signs and clinical assessment, continuous EKG monitoring, Pulse oximetry, Carbon Dioxide monitoring and blood pressure monitoring were done throughout the procedure. Procedure: The patient was placed in the left lateral decubitis position and pre-procedure medications were administered and a bite block was placed. The endoscope was inserted into the mouth and advanced under direct vision to the third part of duodenum. A careful inspection was made as the upper endoscope was withdrawn including a retroflexed examination of the proximal stomach; Findings and interventions are described below. Findings: Larynx:normal Esophagus: GE junction at 35 cm, diaphragm hiatus at 37 cm, consistent with small sliding hiatal hernia, mild esophagitis, bx taken from distal and GEJ, esophagela inlet patches noted which are benign Stomach: Mild antral gastritis. Biopsies were obtained. Grade 2 flap valve on retroflexed examination of the cardia. Duodenum: bulbar duodenitis, mild Intervention: Biopsies as noted above, COLONOSCOPY Instrument: Olympus variable stiffness pediatric scope 190L Colonoscopy Monitoring: Vital signs and clinical assessment, continuous EKG monitoring, Pulse oximetry, Carbon Dioxide monitoring and blood pressure monitoring were done throughout the procedure. Colon withdrawal time was 10 minutes. Procedure: The patient was placed in the left lateral decubitis position and pre-procedure medications were administered. After a digital rectal examination of the ano-rectum, the video colonoscope was inserted into the rectum and advanced through the colon to the cecum/TI. The colonoscope was slowly withdrawn in a retrograde panoramic fashion and the colon mucosa was carefully examined including a retroflexed view of the rectum. Findings and interventions are described below. Procedure Difficulty:moderate Findings: Terminal Ileum-normal, bx taken Random colon bx taken Cecum:normal Ascending Colon: normal Transverse Colon -normal Descending Colon:normal Sigmoid Colon: moderate diverticulosis Rectum: Retroflexion with small internal hemorrhoids, grade I Anorectum - normal Colon preparation: [place] Bowel Preparation Scale Right colon; 2 Transverse colon: 2 Left colon; 2 (0 = Unprepared colon segment with mucosa not seen due to solid stool that cannot be cleared. 1 = Portion of mucosa of the colon segment seen, but other areas of the colon segment not well seen due to staining, residual stool and/or opaque liquid. 2 = Minor amount of residual staining, small fragments of stool and/or opaque liquid, but mucosa of colon segment seen well. 3 = Entire mucosa of colon segment seen well with no residual staining, small fragments of stool or opaque liquid) Impression and Post Procedure Diagnosis: Endoscopy Findings: gastritis duodenitis mild esophagitis esophageal inlet small hiatal hernia Colonoscopy Findings: diverticulosis internal hemorrhoids Plan: Await Pathology results Repeat Colonoscopy in 5 years due to FH of cancer or earlier if clinically indicated High fiber diet leaflet avoid straining at stool, epsom salts and sitz bath, anusol supps or cream if h pylori pos can treat, can consider trial of PPI Above findings were reviewed with the patient and relevant handouts were provided if indicated.
[2023-10-22 10:43] VITALS: BP 136/94; PULSE 107; RESP 16; TEMP 36.9; O2SAT 93
[2023-10-22 10:58] VITALS: BP 142/91; PULSE 80; RESP 18; TEMP 36.6; O2SAT 96
== END 2023-10-22 12:40 | disposition home or self-care (01) ==
PROVIDERS: PCP Internal Medicine; Visit Provider Internal Medicine Gastroenterology
PROC: (CPT 45380; principal; 2023-10-22 10:30)
DX: K59.01 Slow transit constipation (principal); R10.33 Periumbilical pain; K57.30 Diverticulosis of large intestine without perforation or abscess without bleeding; K64.0 First degree hemorrhoids; K20.90 Esophagitis, unspecified without bleeding; K29.70 Gastritis, unspecified, without bleeding; K29.80 Duodenitis without bleeding; K22.89 Other specified disease of esophagus; K44.9 Diaphragmatic hernia without obstruction or gangrene
CPT/HCPCS: 45380; 43239; 88305; 88313; 88341; 88342; J1596; J2704

== ENCOUNTER → 2023-10-22 08:59 | Outpatient (BNV) | payer BC, SELFPAY | PROVIDERS: PCP Internal Medicine; Visit Provider Internal Medicine Gastroenterology | DX: K29.70 Gastritis, unspecified, without bleeding (principal); K29.80 Duodenitis without bleeding; K20.90 Esophagitis, unspecified without bleeding; R19.4 Change in bowel habit; K57.30 Diverticulosis of large intestine without perforation or abscess without bleeding; K64.0 First degree hemorrhoids; Z80.0 Family history of malignant neoplasm of digestive organs | CPT/HCPCS: 43239; 45380 ==

== ENCOUNTER 2023-10-26 14:52 | Outpatient (AMB) | payer BC, SELFPAY ==
--- NOTE | 2023-10-26 14:54 | A.OFFVIS_ITS ---
Vital Signs 10/26/23 14:59 Height 5 ft 3 in Weight 215 lb BMI 38.1 Intake Visit Reasons: yearly breast exam Intake Note: This patient presents for a yearly breast examination assessment. Pt c/o; reports no breast complaints at this time. Administrative Processor Required: No Accompanied by: Self / Same As Patient Allergies No Known Allergies Allergy (Verified 11/06/23 08:57) Medication List - Last Reconciled 10/26/23 by Stanley Escamilla MD No Known Home Meds HPI HPI yearly breast exam: Details: She is here for her yearly breast exam. She has a strong family history of breast cancer and ovarian cancer.? There had two breast cancers in the family at age of 60. A maternal aunt was diagnosed to have ovarian cancer.? The patient h ad gone through genetic testing and no genetic mutation had been identified. She denies any palpable breast masses, she feels well overall. She had a mammogram done last July, and this was unremarkable. [facility] Medical History At high risk for breast cancer Family history of breast cancer Family history of ovarian cancer Surgical History History of dental surgery Hx of colonoscopy History of delivery (1996) Family History Maternal Aunt Ovarian cancer Family/Other Colon cancer Mother Breast cancer Brother Colon cancer Daughter Endometriosis Father Colostomy in place Social History Alcohol intake: never Patient Tobacco Use Status: Former Tobacco user Review of Systems Const Denies chills and Denies fever(s) Card Denies chest pain, Denies dyspnea and Denies dyspnea on exertion Resp Denies cough, Denies dyspnea and Denies dyspnea on exertion GI Denies hematochezia and Denies change in bowel habits Denies hematuria Musc Denies back pain and Denies limited range of motion Neuro Denies focal weakness and Denies convulsions Psych Denies depression and Denies mood swings Physical Exam Vital Signs: BMI result Body Mass Index 38.1 Const General: comfortable and no acute distress Orientation/consciousness: patient oriented x3 Neck Neck: Yes no lymphadenopathy Chest Other: No palpable breast masses, no nipple or skin changes, axillary lymphadenopathy Resp Auscultation: clear to auscultation bilaterally Cardio Rhythm: regular rhythm GI Palpation (GI): Soft to palpation, nontender and no guarding Neuro General: patient oriented x3 Assessment & Plan Assessment & Plan (1) At high risk for breast cancer: Code(s): Z91.89 - Other specified personal risk factors, not elsewhere classified Category: Medical Plan: She currently has no palpable breast masses or axillary lymphadenopathy. Her mammogram from July 2023 is unremarkable. She is to continue with her regular yearly mammograms. I will see her again in the office after her mammogram next year. She also undergoes breast MRI in between her yearly mammograms so this will be scheduled as well. Orders: Orders MR breast BI wo/w con 10/26/23 Z91.89 - Other specified personal risk factors, not elsewhere classified Coding Level of Care Code Est Pt Level 3 (89196) Diagnoses At high risk for breast cancer Z91.89
[2023-10-26 14:59] VITALS: BMI 38.1
== END 2023-10-26 15:12 | disposition home or self-care (01) ==
PROVIDERS: PCP Internal Medicine; Visit Provider Surgery
DX: Z91.89 Other specified personal risk factors, not elsewhere classified (principal)
CPT/HCPCS: 99213

== ENCOUNTER 2023-10-26 14:52 | Outpatient (REF) | payer BC, SELFPAY ==
[2023-10-26 17:04] LABS: C Reactive Protein 0.28 mg/dL (< or = 0.50)
[2023-10-26 17:23] LABS: TSH reflex Free T4 1.62 uIU/mL (0.32-4.0)
[2023-10-27 11:04] LABS: Thyroid Peroxidase Antibodies 1 IU/mL (<9)
[2023-10-27 22:03] LABS: Transglutaminase Ab IgG <1.0 U/mL; Transglutaminase IgA <1.0 U/mL
== END 2023-10-26 14:53 | disposition home or self-care (01) ==
LOC: HO.LAB 14:52
PROVIDERS: Internal Medicine Gastroenterology; PCP Internal Medicine; Visit Provider Surgery
DX: K59.01 Slow transit constipation (principal); R10.33 Periumbilical pain; G89.29 Other chronic pain; Z91.09 Other allergy status, other than to drugs and biological substances
CPT/HCPCS: 36415; 84443; 86003; 86140; 86364; 86376

== ENCOUNTER 2023-11-06 08:34 | Outpatient (AMB) | payer BC, SELFPAY ==
--- NOTE | 2023-11-06 08:56 | MHC.OFFVIS ---
Intake Visit Reasons: s/p colon Intake Note: Halie presents as a video call today follow up colonoscopy. CC: No concerns just need results to the colonoscopy. Allergies No Known Allergies Allergy (Verified 11/06/23 08:57) HPI HPI s/p colon: Details: 53 yr old f with hx of high cholesterol called for f/u RECAP: she had been having sx with bloating and abdominal for years she went to the ED 03/[address] scan which reveale diverticulitis with mass not excluded she has changed diet and eating more healthy which seems to have helped her sx she had noted bloating, satiety she has gurglin gtype of diffuse abdominal pain, gas, 5/10 in severity, wwith change in diet has improved a lot stress can make her sx worse, not sure about foods she had one epsiode of blood mixed with stool few months back she does have episodic nausea, and acid reflux worse with bending she is on ozempic for few years for DM EGd/colon: 10/2023: diverticulosis, slightly more mast cells in TI, RAST: neg, CRP down celiac tests -neg INTERIM: she feels much better since starting anti inflammatory diet and stopping ozempic she avoids sugar as it makes her worse no abdominal pain constipation better no n/v EXAM: GENERAL: The patient is well developed and nontoxic-overweight Talking easily a/P: 1/ bloating,fullness,constipation possibly from ozempic use, FH of CRC and assorted diseases incl UC in father--much better since stopping ozempic --RAST and celiac neg PLAN: 1/ cont with diet as doing, avoid triggers 2/ f/u colonoscopy 5 yrs due to FH [facility] Medical History At high risk for breast cancer Family history of breast cancer Family history of ovarian cancer Surgical History History of dental surgery Hx of colonoscopy History of delivery (1996) Family History Maternal Aunt Ovarian cancer Family/Other Colon cancer Mother Breast cancer Brother Colon cancer Daughter Endometriosis Father Colostomy in place Social History Alcohol intake: never Patient Tobacco Use Status: Former Tobacco user Telehealth Telehealth Location of provider rendering services: practice address Location of patient: address on file Patient Identification confirmed using: Name, : Yes Telehealth method: video Patient verbally consented to treatment: Yes Patient verbally consented to billing insurance company: Yes Patient informed of any privacy concerns related to visit: Yes Minutes spent on Phone/Video with Pt.: 8 Assessment & Plan Assessment & Plan (1) Constipation by delayed colonic transit: Code(s): K59.01 - Slow transit constipation Category: Medical Plan: see above
== END 2023-11-06 09:42 | disposition home or self-care (01) ==
LOC: HO.HGI 08:34
PROVIDERS: PCP Internal Medicine; Visit Provider Internal Medicine Gastroenterology
DX: K59.01 Slow transit constipation (principal)
CPT/HCPCS: 99212

== ENCOUNTER → 2023-11-06 08:34 | Outpatient (BNVA) | payer BC, SELFPAY | PROVIDERS: PCP Internal Medicine; Visit Provider Internal Medicine Gastroenterology ==

== ENCOUNTER 2024-05-11 12:46 | Outpatient (REF) | payer BC, SELFPAY ==
--- NOTE | ~2024-05-11 | MR_ITS ---
EXAMINATION: MR BREAST WITHOUT AND WITH CONTRAST, BILATERAL CLINICAL INFORMATION: 54-year-old for high risk screening. Mother and grandmother with breast cancer COMPARISON: MRI 03/24/2023, 01/15/2022, 11/22/2020, 12/06/2019 with correlation to 08/19/2023 TECHNIQUE: Imaging was performed with a dedicated breast coil. Prior to the administration of contrast, bilateral axial T1 and bilateral axial T2 weighted sequences were obtained. After the uneventful administration of 10 mL of Gadavist, dynamic contrast-enhanced VIBRANT series through the breasts in the axial plane were performed. Subtracted images were performed and reviewed. A delayed sagittal sequence through both breasts was acquired. Additionally, CAD post-processing, including maximum intensity projections, 3-D reconstructions and kinetic analysis, were performed an independent workstation and reviewed by the interpreting radiologist is a portion of this exam. FINDINGS: The patient's tissue is fatty replaced. The tissue demonstrates minimal background enhancement. LEFT BREAST: No suspicious masslike or non-masslike enhancement. No abnormal skin thickening or nipple retraction. No abnormal architectural distortion. Review of the T2 weighted images demonstrates no fibrocystic changes or dilated ducts. Review of kinetic images reveals no additional findings. RIGHT BREAST: No suspicious masslike or non-masslike enhancement. No abnormal skin thickening or nipple retraction. No abnormal architectural distortion. Review of the T2 weighted images demonstrates no fibrocystic changes or dilated ducts. Review of kinetic images reveals no additional findings. There is no suspicious internal mammary chain or axillary adenopathy. Limited views of the chest and abdomen are unremarkable. MR/MR breast BI wo/w con IMPRESSION: No MR specific evidence of malignancy. ASSESSMENT: LEFT BREAST: BI-RADS 1-Negative RIGHT BREAST: BI-RADS 1-Negative RECOMMENDATIONS: Routine mammographic imaging as per most recent study and MRI as per high risk protocol. Electronically signed by: Dilan Monroy MD 06/10/2024 03:03 PM PAUL PELAYO
[2024-05-11] MEDS: gadobutroL 10 ML VIAL IVPUSH (13:55)
== END 2024-05-11 12:47 | disposition home or self-care (01) ==
LOC: HO.MRI 12:46
PROVIDERS: PCP Internal Medicine; Visit Provider Surgery
DX: Z91.89 Other specified personal risk factors, not elsewhere classified (principal)
CPT/HCPCS: 77049; A9585

== ENCOUNTER 2024-09-27 16:16 | Outpatient (REF) | payer BC, SELFPAY ==
--- OUTSIDE RECORDS SUMMARY | 2024-09-27 19:19 | XMS_ITS ---
Author Organization [facility] Address [address] [place] [id number] Care Team Providers Care Manufacturing Director Name Role Phone Armin Slater Primary Care Provider JACQUI Johnson Unavailable [phone] REASON FOR VISIT Estradiol increase Medications Medication SIG (Take, Route, Fr equency, Duration) Notes Start Date End Date Status Estradiol 0.05 MG/24HR 1 patch to skin T ransdermal Two times a Week for 30 days 07/27/2024 Act emanuel Encounters Encounter Location Date Provider [facility] [address] [place] [id number] 07/26/2024 JACQUI CRUZ Hot flash, menopausa l N95.1 Assessments Encounter Date Diagnosis (ICD Code) Assessment Notes Treatment Notes Treatment Clinical Notes Section Notes 07/26/2024 Hot flash, menopausal (ICD-10 - N95.1) Plan Of Treatment Medication Medication Name Sig Start Date Stop Date Notes Estradiol 0.025 MG/24HR 1 patch to skin Transdermal Two times a Week 05/26/2024 Estradiol 0.05 MG/24HR 1 patch to skin T ransdermal Two times a Week for 30 days 07/27/2024 Next Appt Details Provider Name:JACQUI ROSAS I, 11/03/2024 10:00:00 AM, [address] [place] [address], [phone], Progress Notes * Colby BELLOB:[birth year] (54 yo F)Acc No.[id number]:07/26/2024 Patient:?Halie BELL :1970???Age:54 Y???Sex:Female Address:[address] [place] [address], [address] * Refills? Stop Estradiol Patch Twice Weekly, 0.025 MG/24HR, Transdermal, 1 patch to skin, Two times a Week Start Estradiol Patch Twice Weekly, 0.05 MG/24HR, Transdermal, 8, 1 patch to skin, Two times a Week, 30 days, Refills=3 * true * Date:? Generated for Bruna hale/Ger/eTransmitting on:?09/27/2024 07:19 PM EDT
--- OUTSIDE RECORDS SUMMARY | 2024-09-27 19:19 | XMS_ITS ---
Author Organization [facility] Address [address] [place] [address] Care Team Providers Care Sales Department Manager Name Role Phone Armin Slater Primary Care Provider JACQUI Johnson Unavailable [phone] Allergies No Known Allergies REASON FOR VISIT lab f/u [email or web address] [email or web address] Medication SIG (Take, Route, Fr equency, Duration) Notes Start Date End Date Status Estrace 0.1 MG/GM 1 gram Vaginal 3x/wk at bedtime for 90 days 02/16/2024 Active Atorvastatin Calcium Active Mounjaro 7.5 MG/0.5ML as directed Subcutaneous Active Estradiol 0.025 MG/24HR 1 patch to skin Transdermal Two times a Week for 90 days 05/26/2024 Act emanuel Prometrium 100 MG 1 capsule at bedtime Orally Once a day for 90 days 02/16/2024 Active metFORMIN HCl 500 MG 1 tablet with a marti l Orally Twice a day for 90 days 03/25/2024 Active Problems Problem Type SNOMED Code ICD Code Onset Dates Problem Status W/U Status Risk Notes Problem [id number] BMI 35.0-35.9,ad ult (Z68.35) Active confirmed Vital Signs Height 63 in 07/21/2024 Weight 199 lbs 07/21/2024 BMI 35.25 kg/m2 07/21/2024 Encounters Encounter Location Date Provider Diagnosis [facility] [address] [place] [address] 07/21/2024 JACQUI BAKER Abnormal glucose R73.09 ; Hot flash, menopausal N95.1 and BMI 35.0-35.9,adult Z68.35 Assessments Encounter Date Diagnosis (ICD Code) Assessment Notes Treatment Notes Treatment Clinical Notes Section Notes 07/21/2024 Abnormal glucose (ICD-10 - R73.09) 07/21/2024 Hot flash, menopausal (ICD-10 - N95.1) Advised patient that it is critically important to be well-informed on the myriad of issues affected by menopause, perimenopause and fluctuating hormone levels. I recommended Dr. Ashley Lyle's Inside Information podcast on the podcast gisselle. I also recommended Dr. Iraida Glynn's content, which is available as interviews on various YouTube interviews and podcast interviews, as well as her books, which can be found on [employer], etc. Her website is [email or web address] I also recommended Dr. Martha Broussard, orthopedic surgeon who specializes in menopause, and she has multiple interviews on YouTube about the musculoskeletal affects of menopause. ADVISED PT MY GOAL IS TO INCREASE ESTRADIOL TO A MINIMUM DOSE OF 0.05MG PATCH 2X/WK TO PROTECT THE SKELETON. SHE HAS CARDIOLOGY APPT NEXT WEEK RE: HER CALCIUM SCORE RESULTS AND WE WILL F/U W/ HER IN 3MOS W/ A GOAL FOR INCREASING ESTROGEN TO 0.05MG. HOPEFULLY THIS IS ENOUGH TIME FOR HER TO COMPLETE CARDIAC WORKUP. CancelRx Response got Denied on 2024-07-27 14:58:40 for 'Estradiol 0.025 MG/24HR Patch Twice Weekly'Pharmacy Notes: Prescription not found. Contact Pharmacy by other means 07/21/2024 BMI 35.0-35.9,adul t (ICD-10 - Z68.35) 07/21/2024 Other 39 min spent on counseling and coordinating care Plan Of Treatment Medication Medication Name Sig Start Date Stop Date Notes Mounjaro 7.5 MG/0.5ML as directed Subcutaneous Estradiol 0.025 MG/24HR 1 patch to skin Transdermal Two times a Week for 90 days 05/26/2024 Prometrium 100 MG 1 capsule at bedtime Orally Once a day for 90 days 02/16/2024 metFORMIN HCl 500 MG 1 tablet with a marti l Orally Twice a day for 90 days 03/25/2024 Treatment Notes Assessment Notes Hot flash, menopausal Advised patient that it is critically important to be well-informed on the myriad of issues affected by menopause, perimenopause and fluctuating hormone levels. I recommended Dr. Ashley Lyle's Inside Information podcast on the podcast gisselle. I also recommended Dr. Iraida Glynn's content, which is available as interviews on various YouTube interviews and podcast interviews, as well as her books, which can be found on [employer], etc. Her website is [email or web address] I also recommended Dr. Martha Broussard, orthopedic surgeon who specializes in menopause, and she has multiple interviews on YouTube about the musculoskeletal affects of menopause. ADVISED PT MY GOAL IS TO INCREASE ESTRADIOL TO A MINIMUM DOSE OF 0.05MG PATCH 2X/WK TO PROTECT THE SKELETON. SHE HAS CARDIOLOGY APPT NEXT WEEK RE: HER CALCIUM SCORE RESULTS AND WE WILL F/U W/ HER IN 3MOS W/ A GOAL FOR INCREASING ESTROGEN TO 0.05MG. HOPEFULLY THIS IS ENOUGH TIME FOR HER TO COMPLETE CARDIAC WORKUP. CancelRx Response got Denied on 2024-07-27 14:58:40 for 'Estradiol 0.025 MG/24HR Patch Twice Weekly'Pharmacy Notes: Prescription not found. Contact Pharmacy by other means Other 39 min spent on coun seling and coordinating care Future Test Test Name Order Date COMPREHENSIVE METABOLIC PANEL 10/19/2024 HEMOGLOBIN A1c 10/19/2024 INSULIN 10/19/2024 Next Appt Details Follow Up: 3 Months, Reason: Provider Name:JACQUI ROSAS I, 11/03/2024 10:00:00 AM, [address] [place] [address], [phone], Progress Notes * Paulie BELLRogelioOB:[birth year] (54 yo F)Acc No.[id number]:07/21/2024 Patient:?Halie BELL Provider:?Jacqui Baker MD :1970???Age:54 Y???Sex:Female D ate:07/21/2024 Address:[address] [place] [address] Pcp:Armin Slater Subjective: * Chief Complaints: * ???Lab f/u m * HPI: ???:?This visit was conducted as a telemedicine appointment. The patient was physically located [at work] and I was located at home. The platform used was Instacoach, and the call length log is maintained on that platform. The patient understands that a telemedicine visit is protected by the usual doctor-patient relationship, HIPAA laws apply, insurance billing rules apply, in person visits are still an option, and I introduced myself. appt was scheduled to f/u on HRT sleeping great no hot flashes/night sweats/breast tenderness/vaginal bleeding just had breast MRI sees carder blankets in 2wks due to calcium score 183, no cardiac symptoms PCP started her on monjauro 04/2024, 10lb weight loss (16 total) eating 120g protein/day strenght training and pilates, works out 4-5x/wk. * ROS:?General/Constitutional:?Denies?Chills.?Denies?Fatigue.?Denies?Fever.?Endocrine:?Denies?Acne.?Denies?Cold intolerance.?Denies?Hair loss.?Hot flashes?denies.?Irregular menses?denies.?Denies?Weight loss.?Respiratory:?Denies?Breathing problems.?Denies?Shortness of breath.?Cardiovascular:?Comments?Denies chest pain, shortness of breath.?Denies?Chest pain.?Denies?Chest pain with exertion.?Cyanosis?denies.?Gastrointestinal:?Comments?Denies nausea, vomiting, diarrhea, blood in stool..?Denies?Abdominal pain.?Denies?Blood in stool.?Denies?Change in bowel habits.?Constipation?admits.?Denies?Diarrhea.?Denies?Nausea.?Denies?Vomiting.?Women Only:?Denies?Breast lump.?Denies?Breast pain.?Denies?Discharge from the breast.?Denies?Heavy bleeding during menses.?Denies?Hot flashes.?Denies?Irregular menses.?Denies?Missed period(s).?Denies?Painful intercourse.?Denies?Painful menses.?Denies?Vaginal bleeding between periods.?Denies?Vaginal discharge/itching.?Genitourinary:?Patient denies?incontinence.?Skin:?Denies?Acne.?Denies?Rash.?Neurologic:?Denies?Headache.?Denies?Seizures.?Psychiatric:?Denies?Anxiety.?Denies?Depressed mood.?Denies?Difficulty sleeping.?Denies?Mental or Physical abuse.?Denies incontinence. Denies sexual pain/bleeding/dryness/problems. EXCEPT OTHERWISE NOTED IN THE HPI, ROS IS ABOVE. * Medical History:? * Surveillance Inspector History:?Last pap smear date?09/24/2020 Normal per the patient.?Abnormal pap smear?+HPV 15 years ago.?Sexually active?currently.?contraception?none.?Last mammogram date?08/19/2023 Normal per the patient.?bone density?12/2023 Normal per the patient,.?colonoscopy?10/2023 normal per the patient.? * OB History:?Total pregnancies?2.? # 1:?12/04/1986 , [place].? # 2:?01/17/1098 .? * Surgical History:? * Hospitalization/Major Diagno stic Procedure:? * Medications:?TakingMounjaro 7.5 MG/0.5ML Solution Auto-injector as directed Subcutaneous Atorvastatin Calcium Estrace 0.1 MG/GM Cream 1 gram Vaginal 3x/wk at bedtime metFORMIN HCl 500 MG Tablet 1 tablet with a meal Orally Twice a day Prometrium 100 MG Capsule 1 capsule at bedtime Orally Once a day Estradiol 0.025 MG/24HR Patch Twice Weekly 1 patch to skin Transdermal Two times a Week Medication List reviewed and reconciled with the patientTaking Mounjaro 7.5 MG/0.5ML Solution Auto-injector as directed Subcutaneous Taking Atorvastatin Calcium Taking Estrace 0.1 MG/GM Cream 1 gram Vaginal 3x/wk at bedtime Taking metFORMIN HCl 500 MG Tablet 1 tablet with a meal Orally Twice a day Taking Prometrium 100 MG Capsule 1 capsule at bedtime Orally Once a day Taking Estradiol 0.025 MG/24HR Patch Twice Weekly 1 patch to skin Transdermal Two times a Week Medication List reviewed and reconciled with the patient * Allergies:?N.K.D.A.no[Allerg ies Verified] Objective: * Vitals:?Ht: 63 in, Wt:199lbs , BMI:35.25Index, Wt Chng: -16 lbs, Wt Chng Total: - 47 lbs. * ???Past Orders: ???Lab:COMPREHENSIVE METABOL IC PANEL (Order Date - 06/24/2024) (Collection Date & Time - 07/02/2024 08:37 AM) ?Result: Normal glu 9 2 ? Value Reference Range ?GLUCOSE 92 65-99 - mg/d L ?UREA NITROGEN (BUN) 20 7-25 - mg/dL ?CREATININE 0.92 0.50-1.03 - mg/dL ?BUN/CREATININE RATIO SEE NOTE: 6-22 - (calc) ?SODIUM 139 135-146 - mmo l/L ?POTASSIUM 4.3 3.5-5.3 - mmol/L ?CHLORIDE 104 98-110 - mm ol/L ?CARBON DIOXIDE 30 20-32 - mmol/L ?CALCIUM 9.3 8.6-10.4 - m g/dL ?PROTEIN, TOTAL 7.0 6.1-8 .1 - g/dL ?ALBUMIN 4.5 3.6-5.1 - g/ dL ?GLOBULIN 2.5 1.9-3.7 - g /dL (calc) ?ALBUMIN/GLOBULIN RATIO 1.8 1.0-2.5 - (calc) ?BILIRUBIN, TOTAL 0.5 0.2 -1.2 - mg/dL ?ALKALINE PHOSPHATASE 67 37-153 - U/L ?AST 16 10-35 - U/L ?ALT 23 6-29 - U/L ?EGFR 74 > OR = 60 - mL/min/1.73m2 ?Notes: ANTHONY SERENE Prescott 07/04/2024 03:21:09 PM EST >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, a1c is a little better, nothing urgent Carisa Rivas 07/06/2024 04:18:30 PM EST >pt notified of the above Lab:INSULIN * Collection Date 07/02/2024 02/29/2024 Collection Time 08:37 AM 08:57 AM Order Date 06/24/2024 02/16/2024 Result: 7 6.4 INSULIN 7.0 (Ref Range: uIU/mL) 6.4 (Ref Range: uIU/mL) Notes: JACQUI BAKER 03:21:09 PM EST >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 i opened more hours Jessica Rivasa 2024 09:34:28 AM EDT >appt moved up to 03/25 * Examination: ???General Examination: ?GENERAL APPEARANCE:?in no acute distress, well developed, well nourished.?NECK/THYROID:?, full range of motion, .?SKIN:?normal, warm and dry, good turgor.?LUNGS:?normal, good air movement.?MUSCULOSKELETAL:?normal, full range of motion.?NEUROLOGIC:?alert and oriented, gait normal, motor strength normal upper and lower extremities, no tremor.?PSYCH:?alert, oriented, cognitive function intact, good eye contact, judgement and insight good, mood/affect full range, normal, speech clear.? Assessment: * Assessment: 1.?Hot flash, menopausal - N 95.1 (Primary)???2.?Abnormal glucose - R73.09???3.?BMI 35.0-35.9,adult - Z68.35??? Plan: * Treatment: 2.?Abnormal glucose? Refill metFORMIN HCl Tablet, 500 MG, 1 tablet with a meal, Orally, Twice a day, 90 days, 180, Refills 0;?Continue Mounjaro Solution Auto-injector, 7.5 MG/0.5ML, as directed, Subcutaneous.?LAB: HEMOGLOBIN A1c (Ordered for 10/19/2024) ?LAB: INSULIN (Ordered for 10/19/2024) ?LAB: COMPREHENSIVE METABOLIC PANEL (Ordered for 10/19/2024) 3.?Others? Notes: 39 min spent on counseling and coordinating care?? * Procedure Codes:? * Follow Up:?3 Months * Images: * Sign off status: Completed true * Provider:?Jacqui Baker MD Date:?08/2024 Generated for Gokuli geoffrey/Audrag/eTransmitting on:?09/27/2024 07:19 PM EDT History and Physical Notes * HPI (History of Present Illness) Category Sub-Category Detail Notes Category Not es This visit was conducted as a telemedicine appointment. The patient was physically located [at work] and I was located at home. The platform used was Instacoach, and the call length log is maintained on that platform. The patient understands that a telemedicine visit is protected by the usual doctor-patient relationship, HIPAA laws apply, insurance billing rules apply, in person visits are still an option, and I introduced myself. appt was scheduled to f/u on HRT sleeping great no hot flashes/night sweats/breast tenderness/vaginal bleeding just had breast MRI sees carder blankets in 2wks due to calcium score 183, no cardiac symptoms PCP started her on monjauro 04/2024, 10lb weight loss (16 total) eating 120g protein/day strenght training and pilates, works out 4-5x/wk Examination Category Sub-Category Detail Notes Category Not es General Examination GENERAL APPEARANCE: in no ac [place] distress, well developed, well nourished NECK/THYROID: , full range of frances on, LUNGS: normal, good air mov ement NEUROLOGIC: alert and oriented, gait normal, motor strength normal upper and lower extremities, no tremor SKIN: normal, warm and dry , good turgor MUSCULOSKELETAL: normal, full range o f motion PSYCH: alert, oriented, cog nitive function intact, good eye contact, judgement and insight good, mood/affect full range, normal, speech clear
--- OUTSIDE RECORDS SUMMARY | 2024-09-27 19:20 | XMS_ITS ---
Author Organization [facility] Address [address] [place] [phone] Care Team Providers Care Whale Trainer Name Role Phone Armin Slater Primary Care Provider JACQUI Johnson Unavailable [phone] [address] Scan Results Encounters Encounter [facility] Date [facility] [address] [place] [phone] 06/02/2024 JACQUI CRUZ Plan Of Treatment Next Appt Details Provider Name:JACQUI ROSAS I, 11/03/2024 10:00:00 AM, [address] [place] [address], [phone], Progress Notes * Colby BELLOB:[birth year] (54 yo F)Acc No.[id number]:06/02/2024 Patient:?Halie BELL :1970???Age:54 Y???Sex:Female Address:[address] [place] [address], [id number] * true * Date:? Generated for Printi geoffrey/Ger/eTransmitting on:?09/27/2024 07:20 PM EDT
--- OUTSIDE RECORDS SUMMARY | 2024-09-27 19:20 | XMS_ITS ---
Author Name [facility] Organization Unknown Care Team Organization Name Specialty Phone Email Start Date End [facility] [employer] [facility] 06/03/2024
--- OUTSIDE RECORDS SUMMARY | 2024-09-27 19:20 | XMS_ITS | Patient Health Record ---
Author Organization airpim [facility] Address [address] [place] [address] Care Team Providers Care Principal Administrative Clerk Name Role Phone Armin Slater Primary Care Provider Luis Fernando MCKEONANNE-MARIE JACQUI Unavailable [phone] AZEEMBREANN LONDONO Unavailable [phone] Allergies No Known Allergies Results Component Value Reference Range Notes INSULIN Reviewed date:07/06/2024 04:18:58 PM Interpretation:7 Performing Lab:[facility], [facility] [address] [place], [place] [id number] Brooklyn Evans Notes/Report: FASTING FASTING:YES FASTING: YES INSULIN 7.0 Reference Range < or = 18.4 Risk: Optimal < or = 18.4 Moderate NA High >18.4 Adult cardiovascular event risk category cut points (optimal, moderate, high) are based on Insulin Reference Interval studies performed at [facility] in 2021. HEMOGLOBIN A1c Reviewed date:07/06/2024 04:18:58 PM Interpretation:5.7 Performing Lab:NL2, [facility] Brooklyn Evans Notes/Report: FASTING FASTING:YES FASTING: YES HEMOGLOBIN A1c 5.7 <5.7 % of total Hgb For someone without known diabetes, a hemoglobin A1c value between 5.7% and 6.4% is consistent with prediabetes and should be confirmed with a follow-up test. For someone with known diabetes, a value <7% indicates that their diabetes is well controlled. A1c targets should be individualized based on duration of diabetes, age, comorbid conditions, and other considerations. This assay result is consistent with an increased risk of diabetes. Currently, no consensus exists regarding use of hemoglobin A1c for diagnosis of diabetes for children. COMPREHENSIVE METABOLIC PANE L Reviewed date:07/06/2024 04:18:57 PM Interpretation:Normal glu 92 Performing Lab:[employer], [facility] Valeriafahad Ubaldo Evans Notes/Report: FASTING FASTING:YES FASTING: YES GLUCOSE 92 65-99 mg/dL Fasting reference interval UREA NITROGEN (BUN) 20 7-25 mg/dL CREATININE 0.92 0.50-1.03 mg/dL EGFR 74 > OR = 60 mL/min/1.73m2 BUN/CREATININE RATIO SEE NOTE: 6-22 (calc) Not Reported: BUN and Creatinine are within reference range. SODIUM 139 135-146 mmol/L POTASSIUM 4.3 3.5-5.3 mmol/L CHLORIDE 104 98-110 mmol/L CARBON DIOXIDE 30 20-32 mmol/L CALCIUM 9.3 8.6-10.4 mg/dL PROTEIN, TOTAL 7.0 6.1-8.1 g/dL ALBUMIN 4.5 3.6-5.1 g/dL GLOBULIN 2.5 1.9-3.7 g/dL (calc) ALBUMIN/GLOBULIN RATIO 1.8 1.0-2.5 (calc) BILIRUBIN, TOTAL 0.5 0.2-1.2 mg/dL ALKALINE PHOSPHATASE 67 37-153 U/L AST 16 10-35 U/L ALT 23 6-29 U/L VITAMIN D,25-OH,TOTAL,IA Reviewed date:2024 09:35:07 AM Interpretation:35 L Performing Lab:[facility], [facility] Brooklyn Evans Notes/Report: 0 FASTING:YES FASTING: YES VITAMIN D,25-OH,TOTAL,IA 35 30-100 ng/mL Vitamin D Status 25-OH Vitamin D: Deficiency: <20 ng/mL Insufficiency: 20 - 29 ng/mL Optimal: > or = 30 ng/mL For 25-OH Vitamin D testing on patients on D2-supplementation and patients for whom quantitation of D2 and D3 fractions is required, the QuestAssureD() 25-OH VIT D, (D2,D3), LC/MS/MS is recommended: order code 11065 (patients >2yrs). See Note 1 Note 1 For additional information, please refer to http://education.Okan/faq/KBI173 (This link is being provided for informational/ educational purposes only.) INSULIN Reviewed date:2024 09:35:07 AM Interpretation:6.4 Performing Lab:[facility] [address] Valeria Ubaldo Evans Notes/Report: FASTING FASTING:YES FASTING: YES INSULIN 6.4 Reference Range < or = 18.4 Risk: Optimal < or = 18.4 Moderate NA High >18.4 Adult cardiovascular event risk category cut points (optimal, moderate, high) are based on Insulin Reference Interval studies performed at [facility] in 2021. HEMOGLOBIN A1c Reviewed date:2024 09:35:07 AM Interpretation:5.8 H Performing Lab:[facility], [facility] [address] [facility] Ubaldo Evans Notes/Report: 0 FASTING:YES FASTING: YES HEMOGLOBIN A1c 5.8 <5.7 % of total Hgb For someone without known diabetes, a hemoglobin A1c value between 5.7% and 6.4% is consistent with prediabetes and should be confirmed with a follow-up test. For someone with known diabetes, a value <7% indicates that their diabetes is well controlled. A1c targets should be individualized based on duration of diabetes, age, comorbid conditions, and other considerations. This assay result is consistent with an increased risk of diabetes. Currently, no consensus exists regarding use of hemoglobin A1c for diagnosis of diabetes for children. This test was performed on the Nacho mason c503 platform. Effective 09/21/23, a change in test platforms from the Duarte Real Time Analyst to the Nacho mason c503 may have shifted HbA1c results compared to historical results. Based on laboratory validation testing conducted at [facility], the Nacho platform relative to the Duarte platform had an average increase in HbA1c value of < or = 0.3%. This difference is within accepted variability established by the National Glycohemoglobin Standardization Program. Note that not all individuals will have had a shift in their results and direct comparisons between historical and current results for testing conducted on different platforms is not recommended. THYROID PEROXIDASE ANTIBODIE S Reviewed date:2024 09:35:07 AM Interpretation:2 wnl Performing Lab:NL2, [facility] [address] Brooklyn Lyons Notes/Report: 0 FASTING:YES FASTING: YES THYROID PEROXIDASE ANTIBODIES 2 <9 IU/mL GLUCOSE Reviewed date:2024 09:35:06 AM Interpretation:108H Performing Lab:NL[facility], [facility] Brooklyn Evans Notes/Report: 0 FASTING:YES FASTING: YES GLUCOSE 108 65-99 mg/dL Fasting reference interval For someone without known diabetes, a glucose value between 100 and 125 mg/dL is consistent with prediabetes and should be confirmed with a follow-up test. Reason For Referral No Information Medications Medication SIG (Take, Route, Fr equency, Duration) Notes Start Date End Date Status Progesterone 100 MG TAKE 1 CAPSULE BY [facility] EVERY DAY AT BEDTIME FOR 90 DAYS for 90 Active Estrace 0.1 MG/GM 1 gram Vaginal 3x/wk at bedtime for 90 days 02/16/2024 Active metFORMIN HCl 500 MG 1 tablet with a marti l Orally Twice a day for 90 days 03/25/2024 Active Estradiol 0.05 MG/24HR 1 patch to skin T ransdermal Two times a Week for 30 days 07/27/2024 Act emanuel Atorvastatin Calcium Active Mounjaro 7.5 MG/0.5ML as directed Subcutaneous Active Social History Tobacco Use: Social History Observation Description Date Details (start date - stop date) Former Smoker NA - NA Tobacco Control (Standard) Question Answer Notes Tobacco use: Former smoker How long has it been since you last smoked? Grea ter than 10 years Problems Problem Type SNOMED Code ICD Code Onset Dates Problem Status W/U Status Risk Notes Problem 850759491 Mixed hyperlipidemia (E78.2) Active confirmed Problem 64695891 Vitamin D deficiency (E55.9) Active confirmed Problem 75117752 Atrophic vaginit is (N95.2) Active confirmed Problem 252644242 Hot flash, menopausal (N95.1) Active confirmed Problem 738718918 Abnormal glucose (R73.09) Active confirmed Problem 898835270 Urinary frequenc y (R35.0) Active confirmed Problem 061100588 Elevated BP with out diagnosis of hypertension (R03.0) Active confirmed Problem 806259295 Family history o f type 2 diabetes mellitus (Z83.3) Active confirmed Problem 650995279 BMI 40.0-44.9, adult (Z68.41) Active confirmed Problem 026322035 BMI 35.0-35.9,ad ult (Z68.35) Active confirmed Vital Signs Heart Rate 80 /min 02/16/2024 Blood pressure diastolic 70 mm Hg 02/16/2024 Height 63 in 07/21/2024 Blood pressure systolic 150 mm Hg 02/16/2024 Weight 199 lbs 07/21/2024 BMI 35.25 kg/m2 07/21/2024 Encounters Encounter Location Date Provider Diagnosis [facility] [employer] [address] [address] 02/16/2024 JACQUI BAKER Hot flash, menopausa l N95.1 ; Poor sleep Z72.820 ; Weight gain R63.5 ; Abnormal glucose R73.09 ; Atrophic vaginitis N95.2 ; BMI 40.0-44.9, adult Z68.41 and Vitamin D deficiency E55.9 [facility] [employer] [address] [address] 03/25/2024 JACQUI BAKER Abnormal glucose R73.09 ; Vitamin D deficiency E55.9 and Hot flash, menopausal N95.1 [facility] [employer] [address] [address] 05/26/2024 BREANN SMITH Abnormal glucose R73.09 ; Hot flash, menopausal N95.1 ; Atrophic vaginitis N95.2 and BMI 40.0-44.9, adult Z68.41 [facility] [employer] [address] [address] 07/21/2024 JACQUI BAKER Abnormal glucose R73.09 ; Hot flash, menopausal N95.1 and BMI 35.0-35.9,adult Z68.35 [facility] [employer] [place] [address] [place] [phone] 02/16/2024 [facility] [address] [place] [phone] 03/05/2024 JACQUI BAK[facility] [place] [facility] [place] [address] 05/26/2024 JACQUI [facility] [place] [address] [place] [phone] 02/27/2024 [facility] [place] [address] [place] [phone] 02/28/2024 JACQUI [facility] [place] [address] [place] [phone] 06/02/2024 JACQUI [facility] [place] [address] [place] [phone] 07/26/2024 JACQUI BAKER Hot flash, menopausa l N95.1 Assessments Encounter Date Diagnosis (ICD Code) Assessment Notes Treatment Notes Treatment Clinical Notes Section Notes 02/16/2024 Hot flash, menopausal (ICD-10 - N95.1) 03/25/2024 Abnormal glucose (ICD-10 - R73.09) I recommend breakfast, lunch, dinner plus 3 small snacks daily, all of which contain protein/fat/carbs in 25%/25%/50% ratio. She was advised to limit starch (bread/potatoes/pas ta/rice/corn) to a serving size that would fit in the palm of their hand. Our new weight loss program was explained to patient in detail. She will receive registration information. She was advised that after registration, she will need to follow the getting started checklist and submit labs/medical records, startup paperwork and schedule a medical appointment. [email or web address] [email or web address] advised patient she is on a trajectory to developing Type 2 diabetes, which runs strong in her family, and her labs are prediabetic range. sent pt multiple documents re: healthy eating, see pt docs. Also recommended consistent exercise including weights, lower heart rate than her current [employer] workouts at 160s. 05/26/2024 Hot flash, menopausal (ICD-10 - N95.1) Will lower the dose of estradiol until she sees the travel pta. I will check with Dr. Baker to see if she recommends stopping it at this time or not. Expl. some women have very good sx relief from Prometrium alone, and she is willing to try that if Dr. Baker recommneds stopping the estrogen. 05/26/2024 Abnormal glucose (ICD-10 - R73.09) Will check w/ Dr. Baker on her recommendation, but we do have many patients both on Metformin as well as a GLP-1 injection. It's OK to do both as long as tolerated without too many GI effects. (Reass. the diverticulitis is not from the Metformin, and that diarrhea doesn't CAUSE diverticulitis -diarrhea can be a symptom of it, but the underlying disease was already there.) Pt aware of fasting labs ordered for 06/24/2024, so they will back for her 07/07/2024 f/u w/ Dr. Baker. 07/21/2024 Hot flash, menopausal (ICD-10 - N95.1) Advised patient that it is critically important to be well-informed on the myriad of issues affected by menopause, perimenopause and fluctuating hormone levels. I recommended Dr. Ashley Lyle's Inside Information podcast on the [employer]k [employer] gisselle. I also recommended Dr. Iraida Glynn's content, which is available as interviews on various YouTube interviews and podcast interviews, as well as her books, which can be found on [employer], etc. Her website is [email or web address] I also recommended Dr. Martha Broussard, orthopedic [...] found. Contact Pharmacy by other means 07/21/2024 Abnormal glucose (ICD-10 - R73.09) 07/26/2024 Hot flash, menopausal (ICD-10 - N95.1) 07/21/2024 BMI 35.0-35.9,adul t (ICD-10 - Z68.35) 05/26/2024 Atrophic vaginitis (ICD-10 - N95.2) We discussed benefits of treatment including increased vaginal elasticity, moisture, urethral support, tissue thickness with resultant decreased sexual pain, possibly decreased urinary incontinence. Vaginal estrogen is the preferred lowest dose hormonal treatment and highly effective with little to no systemic absorption and risk. Vaginal laser therapy is also an option for women who can't tolerate estrogen. Hormonal treatment is usually covered by insurance, whereas laser treatment is rarely covered. Adv. might need vaginal estrogen more if stops systemic estradiol patch. Reass. cream is much safer and not systemic, just topical. 03/25/2024 Vitamin D deficiency (ICD-10 - E55.9) 02/16/2024 Poor sleep (ICD-10 - Z72.820) 02/16/2024 Weight gain (ICD-10 - R63.5) patient has already had mostly complete lab workup. there are a few additional labs i would recommend for insulin resistance. advised to eat within 1st hour of being awake. protein 1g/kg body weight. this will be constipating and she will need strategies to manage that. did not recommend making those dietary changes (other than stopping the fasting and eating within 1st hour and every 3-4 hours thereafter with protein/carbs/fat each meal). priority is to feel better from the menopause symptoms and then work on weight loss. do not expect HRT to cause weight loss. she will send us her prior records, research our WLP prior to next appt. 03/25/2024 Hot flash, menopausal (ICD-10 - N95.1) pt is feeling better after 5wks on HRT. sleeping better. will sched f/dk in may to determine if any dose changes are needed 05/26/2024 BMI 40.0-44.9, adult (ICD-10 - Z68.41) Doing well on Moujaro so far -will have f/u w/ PCP for labs and meds for wt loss. 02/16/2024 Abnormal glucose (ICD-10 - R73.09) 02/16/2024 Atrophic vaginitis (ICD-10 - N95.2) 02/16/2024 BMI 40.0-44.9, adult (ICD-10 - Z68.41) Our new weight loss program was explained to patient in detail. She will receive registration information. She was advised that after registration, she will need to follow the getting started checklist and submit labs/medical records, startup paperwork and schedule a medical appointment. [email or web address] [email or web address] InBody body composition analysis was discussed and offered. Advised that this will provide basal metabolic rate (actual calories this individual needs based on age/gender/%body muscle and fat) and that this can help guide dietary decisions. Advised that this # changes with weight loss and fat conversion to muscle. Also will provide visceral fat score, which helps predict future cardiovascular risk. This test is not covered by ins, but is not expensive at $35/evaluation and friends/family members are welcome to do it as well. This can help people understand successes and limitations with their excercise and diet programs, as sometimes the scale doesn't change but the body composition does (for better or worse) and this can help them understand when/how they need to change their programs. The patient was advised to eat breakfast, lunch, dinner plus 3 small snacks daily, all of which contain protein/fat/carbs in 25%/25%/50% ratio. She was advised to limit starch (bread/potatoes/pas ta/rice/corn) to a serving size that would fit in the palm of their hand. Nutrition consult was offered. 02/16/2024 Vitamin D deficiency (ICD-10 - E55.9) 02/16/2024 Other 59 min spent on counseling and coordinating care 03/25/2024 Other 39 min spent on counseling and coordinating care 05/26/2024 Other 39 min spent on counseling and coordinating care 07/21/2024 Other 39 min spent on counseling and coordinating care Plan Of Treatment Next Appt Details Provider Name:JACQUI ROSAS I, 11/03/2024 10:00:00 AM, [address] [place] [address], [phone], Insurance Providers Payer Name Payer Address Payer Phone Subscriber Number Group Number Insured Name Patient Relationship to Insured Coverage Start Date Coverage End Date [facility] [address] [place] [address] [phone] [id number] Halie Goodson Self - patient is the insured Medical (General) History Medical History History ICD Code High Cholesterol GERD Gastritis Diverticulitis 2014 neg genetic testing for breast canc er Surgical History Surgery Date(Month/Year) 1996 Hospitalization History Reason Date(Month/Year) 1996
== END 2024-09-27 16:17 | disposition home or self-care (01) ==
LOC: HO.MAMMO 16:16
PROVIDERS: Absent Provider Surgery; PCP Internal Medicine; Visit Provider Internal Medicine
DX: Z12.31 Encounter for screening mammogram for malignant neoplasm of breast (principal)
CPT/HCPCS: 77063; 77067

== ENCOUNTER → 2024-09-27 16:30 | Outpatient (BNV) | payer BC, SELFPAY | PROVIDERS: Absent Provider Surgery; PCP Internal Medicine; Visit Provider Internal Medicine | DX: Z12.31 Encounter for screening mammogram for malignant neoplasm of breast (principal) | CPT/HCPCS: 77063; 77067 ==

== ENCOUNTER 2024-10-26 08:51 | Outpatient (AMB) | payer BC, SELFPAY ==
--- NOTE | 2024-10-26 08:58 | A.OFFVIS_ITS ---
Vital Signs 10/26/24 09:04 Height 5 ft 3 in Weight 199 lb BMI 35.2 BP 122/75 Blood Pressure Location Lt brachial Position Sitting Pulse 79 Intake Visit Reasons: 1 year follow up breast exam Intake Note: Patient is seen in office for yearly breast exam. Pt c/o: denies any concerns regarding the breast MRI:05/11/24 mm:09/27/24 Director Biomedical Engineering Required: No Sander Portable Machine: Sander Portable Machine Present Accompanied by: Self / Same As Patient Allergies No Known Allergies Allergy (Verified 10/26/24 09:05) Medication List - Last Reconciled 10/26/24 by Stanley Escamilla MD atorvastatin 40 mg PO DAILY estradiol 1 patch transdermal 2XW metformin 500 mg PO BID progesterone micronized 100 mg PO BEDTIME tirzepatide (Mounjaro) mg subcut HPI HPI 1 year follow up breast exam: Details: She is here for her yearly breast exam. She has a strong family history of breast cancer and ovarian cancer.? There had two breast cancers in the family at age of 60. A maternal aunt was diagnosed to have ovarian cancer.? The patient had gone through genetic testing and no genetic mutation had been identified. She denies any palpable breast masses, she feels well overall. She had a mammogram done last September, and this was unremarkable. Her MRI from April, was also unremarkable. [facility] Medical History At high risk for breast cancer Family history of breast cancer Family history of ovarian cancer Surgical History History of dental surgery Hx of colonoscopy History of delivery (1996) Family History Maternal Aunt Ovarian cancer Family/Other Colon cancer Mother Breast cancer Brother Colon cancer Daughter Endometriosis Father Colostomy in place Social History Alcohol intake: never Patient Tobacco Use Status: Former Tobacco user Review of Systems Const Denies chills and Denies fever(s) Card Denies chest pain, Denies dyspnea and Denies dyspnea on exertion Resp Denies cough, Denies dyspnea and Denies dyspnea on exertion GI Denies hematochezia and Denies change in bowel habits Denies hematuria Musc Denies back pain and Denies limited range of motion Neuro Denies focal weakness and Denies convulsions Psych Denies depression and Denies mood swings Physical Exam Vital Signs: Last Vital Signs Pulse 79 10/26/24 09:04 BP 122/75 10/26/24 09:04 BMI result Body Mass Index 35.2 Const General: comfortable and no acute distress Orientation/consciousness: patient oriented x3 Neck Neck: Yes no lymphadenopathy Chest Other: No palpable breast masses, no nipple or skin changes, no axillary lymphadenopathy Resp Auscultation: clear to auscultation bilaterally Cardio Rhythm: regular rhythm GI Palpation (GI): Soft to palpation, nontender and no guarding Neuro General: patient oriented x3 Assessment & Plan Assessment & Plan (1) At high risk for breast cancer: Code(s): Z91.89 - Other specified personal risk factors, not elsewhere classified Category: Medical Plan: She is at high risk because of her family history of breast cancer and ovarian cancer. Her MRI and mammogram the past 6 months have been unremarkable. Physical exam are unremarkable without any suggestion of any breast mass I reminded her of her regular screening imaging including an MRI in 6 months and mammogram next year I will see her in the office next year again although I can see her in the office on a p.r.n. basis depending on her imaging studies. Coding Level of Care Code Est Pt Level 3 (94022) Complex EM visit Add On G2211 Diagnoses At high risk for breast cancer Z91.89
[2024-10-26 09:04] VITALS: BP 122/75; PULSE 79; BMI 35.2
--- OUTSIDE RECORDS SUMMARY | 2024-10-26 09:14 | XMS_ITS | Patient Health Record ---
Author Organization [facility] Address [address] [place] [address] Care Team Providers Care Newspaper Carriers Supervisor Name Role Phone Armin Slater Primary Care Provider JACQUI Johnson Unavailable [phone] AZEEMBREANN LONDONO Unavailable [phone] Allergies No Known Allergies Results Component Value Reference Range Notes VITAMIN D,25-OH,TOTAL,IA Reviewed date:2024 09:35:07 AM Interpretation:35 L Performing Lab:NL[facility], [facility] [place], [place] [id number] Brooklyn Evans Notes/Report: 0 FASTING:YES FASTING: YES VITAMIN D,25-OH,TOTAL,IA 35 30-100 ng/mL Vitamin D Status 25-OH Vitamin D: Deficiency: <20 ng/mL Insufficiency: 20 - 29 ng/mL Optimal: > or = 30 ng/mL For 25-OH Vitamin D testing on patients on D2-supplementation and patients for whom quantitation of D2 and D3 fractions is required, the QuestAssureD(TM) 25-OH VIT D, (D2,D3), LC/MS/MS is recommended: order code 26091 (patients >2yrs). See Note 1 Note 1 For additional information, please refer to [email or web address] (This link is being provided for informational/ educational purposes only.) INSULIN Reviewed date:2024 09:35:07 AM Interpretation:6.4 Performing Lab:NL2, [facility] Brooklyn Levinwat Notes/Report: FASTING FASTING:YES FASTING: YES INSULIN 6.4 Reference Range < or = 18.4 Risk: Optimal < or = 18.4 Moderate NA High >18.4 Adult cardiovascular event risk category cut points (optimal, moderate, high) are based on Insulin Reference Interval studies performed at [facility] in 2021. HEMOGLOBIN A1c Reviewed date:2024 09:35:07 AM Interpretation:5.8 H Performing Lab:[facility] [place] [facility] Brooklyn Maldonadoquinton Notes/Report: 0 FASTING:YES FASTING: YES HEMOGLOBIN A1c [...] change in test platforms from the Duarte Advertising Operations Manager to the Nacho mason c503 may have shifted HbA1c results compared to historical results. Based on laboratory validation testing conducted at [facility], the Nacho platform relative to the Duarte [...] Reviewed date:2024 09:35:07 AM Interpretation:2 wnl Performing Lab:[facility], [facility] [place] [facility] [place]MA[address] Valeriafahad Conner Cristina Notes/Report: 0 FASTING:YES FASTING: YES THYROID PEROXIDASE ANTIBODIES 2 <9 IU/mL GLUCOSE Reviewed date:2024 09:35:06 AM Interpretation:108H Performing Lab:[facility], [facility] [address] Valeria Ubaldo Serena Notes/Report: 0 FASTING:YES FASTING: YES GLUCOSE 108 65-99 mg/dL Fasting reference interval For someone without known diabetes, a glucose value between 100 and 125 mg/dL is consistent with prediabetes and should be confirmed with a follow-up test. COMPREHENSIVE METABOLIC PANE L (Not yet reviewed by provider) Interpretation: Performing Lab:NL2, [facility]ada[facility]riela [place] [phone] [facility] Ubaldo Poonamhelen [facility] Notes/Report: 0 FASTING:YES FASTING: YES GLUCOSE 86 65-99 mg/dL Fasting reference interval UREA NITROGEN (BUN) 17 7-25 mg/dL CREATININE 0.78 0.50-1.03 mg/dL EGFR 90 > OR = 60 mL/min/1.73m2 BUN/CREATININE RATIO SEE NOTE: 6- (calc) Not Reported: BUN and Creatinine are within reference range. SODIUM 138 135-146 mmol/L POTASSIUM 4.3 3.5-5.3 mmol/L CHLORIDE 105 98-110 mmol/L CARBON DIOXIDE 28 20-32 mmol/L CALCIUM 9.2 8.6-10.4 mg/dL PROTEIN, TOTAL 6.8 6.1-8.1 g/dL ALBUMIN 4.1 3.6-5.1 g/dL GLOBULIN 2.7 1.9-3.7 g/dL (calc) ALBUMIN/GLOBULIN RATIO 1.5 1.0-2.5 (calc) BILIRUBIN, TOTAL 0.5 0.2-1.2 mg/dL ALKALINE PHOSPHATASE 64 37-153 U/L AST 16 10-35 U/L ALT 18 6-29 U/L INSULIN (Not yet reviewed by provider) Interpretation: Performing Lab:[facility], [facility] [facility] Ubaldo Poonamhelen [facility] Notes/Report: 0 FASTING:YES FASTING: YES INSULIN 8.3 Reference Range < or = 18.4 Risk: Optimal < or = 18.4 Moderate NA High >18.4 Adult cardiovascular event risk category cut points (optimal, moderate, high) are based on Insulin Reference Interval studies performed at [facility] in 2021. HEMOGLOBIN A1c (Not yet revi ewed by provider) Interpretation: Performing Lab:NL2, [facility] Brooklyn Evans Notes/Report: 0 FASTING:YES FASTING: YES HEMOGLOBIN A1c 5.3 <5.7 % of total Hgb For the purpose of screening for the presence of diabetes: <5.7% Consistent with the absence of diabetes 5.7-6.4% Consistent with increased risk for diabetes (prediabetes) > or =6.5% Consistent with diabetes This assay result is consistent with a decreased risk of diabetes. Currently, no consensus exists regarding use of hemoglobin A1c for diagnosis of diabetes in children. According to Stateless Diabetes Association (ADA) guidelines, hemoglobin A1c <7.0% represents optimal control in non- diabetic patients. Different metrics may apply to specific patient populations. Standards of Medical Care in Diabetes(ADA). INSULIN Reviewed date:07/06/2024 04:18:58 PM Interpretation:7 Performing Lab:[facility], [facility] Brooklyn Evans Notes/Report: FASTING FASTING:YES FASTING: YES INSULIN 7.0 Reference Range < or = 18.4 Risk: Optimal < or = 18.4 Moderate NA High >18.4 Adult cardiovascular event risk category cut points (optimal, moderate, high) are based on Insulin Reference Interval studies performed at [facility] in 2021. HEMOGLOBIN A1c Reviewed date:07/06/2024 04:18:58 PM Interpretation:5.7 Performing Lab:[facility], [facility] Brooklyn Evans Notes/Report: FASTING FASTING:YES FASTING: [...] date:07/06/2024 04:18:57 PM Interpretation:Normal glu 92 Performing Lab:NL2, [facility] J[address] [facility] Brooklyn Evans Notes/Report: FASTING FASTING:YES FASTING: YES GLUCOSE 92 65-99 mg/dL Fasting reference interval UREA NITROGEN (BUN) 20 7-25 mg/dL CREATININE 0.92 0.50-1.03 mg/dL EGFR 74 > OR = 60 mL/min/1.73m2 BUN/CREATININE RATIO SEE NOTE: - (calc) Not Reported: BUN and Creatinine are [...] 16 10-35 U/L ALT 23 6-29 U/L Reason For Referral No Information Medications Medication SIG (Take, Route, Fr equency, Duration) Notes Start Date End Date Status Progesterone 100 MG TAKE 1 CAPSULE BY [facility] EVERY DAY AT BEDTIME FOR 90 DAYS for 90 Active Estrace 0.1 MG/GM 1 gram Vaginal 3x/wk at bedtime for 90 days 02/16/2024 Active Estradiol 0.05 MG/24HR 1 patch to skin T ransdermal Two times a Week for 30 days 07/27/2024 Act emanuel metFORMIN HCl 500 MG 1 tablet with a marti l Orally Twice a day for 90 days 03/25/2024 Active Atorvastatin Calcium Active Mounjaro 7.5 MG/0.5ML as directed Subcutaneous Active Social History Tobacco Use: Social History Observation Description Date Details (start date - stop date) Former Smoker NA - NA Tobacco Control (Standard) Question Answer Notes Tobacco use: Former smoker How long has it been since you last smoked? Vielka ter than 10 years Problems Problem Type SNOMED Code ICD Code Onset Dates Problem Status W/U Status Risk Notes Problem 184867358 Mixed hyperlipidemia (E78.2) Active confirmed Problem 05301175 Vitamin D deficiency (E55.9) Active confirmed Problem 93864155 Atrophic vaginit is (N95.2) Active confirmed Problem 107020104 Hot flash, menopausal (N95.1) Active confirmed Problem 290450884 Abnormal glucose (R73.09) Active confirmed Problem 100302556 Urinary frequenc y (R35.0) Active confirmed Problem 730709911 Elevated BP with out diagnosis of hypertension (R03.0) Active confirmed Problem 334933493 Family history o f type 2 diabetes mellitus (Z83.3) Active confirmed Problem 749308796 BMI 40.0-44.9, adult (Z68.41) Active confirmed Problem 836683061 BMI 35.0-35.9,ad ult (Z68.35) Active confirmed Vital Signs Heart Rate 80 /min 02/16/2024 Blood pressure diastolic 70 mm Hg 02/16/2024 Height 63 in 07/21/2024 Blood pressure systolic 150 mm Hg 02/16/2024 Weight 199 lbs 07/21/2024 BMI 35.25 kg/m2 07/21/2024 Encounters Encounter Location Date Provider Diagnosis [facility] [address] [place] [phone] 02/16/2024 JACQUI ASLAMI Hot flash, menopausa l N95.1 ; Poor sleep Z72.820 ; Weight gain R63.5 ; Abnormal glucose R73.09 ; Atrophic vaginitis N95.2 ; BMI 40.0-44.9, adult Z68.41 and Vitamin D deficiency E55.[address] [facility] [address] [place] [phone] 03/25/2024 JACQUI ASLAMI Abnormal glucose R73.09 ; Vitamin D deficiency E55.9 and Hot flash, menopausal N95.1 [facility] [place] [address] [place] [phone] 05/26/2024 BREANN SMITH Abnormal glucose R73.09 ; Hot flash, menopausal N95.1 ; Atrophic vaginitis N95.2 and BMI 40.0-44.9, adult Z68.[address] [address] 07/21/2024 JACQUI BAKER Abnormal glucose R73.09 ; Hot flash, menopausal N95.1 and BMI 35.0-35.9,adult Z68.35 [facility] [place] [address] [place] [phone] 02/16/2024 JACQUI BAKER [facility] [place] [address] [place] [phone] 03/05/2024 JACQUI BAKER [facility] [place] [address] [place] [phone] 05/26/2024 [facility] [place] [address] [place] [phone] 10/21/2024 JACQUI BAKER Abnormal glucose R73.09 [facility] [address] [place] [phone] 02/27/2024 [facility] [address] [place] [phone] 02/28/2024 [facility] [place] [address] [place] [phone] 06/02/2024 [facility] [place] [address] [place] [phone] 07/26/2024 JACQUI BAKER Hot flash, menopausa l [...] startup paperwork and schedule a medical appointment. [email or web address] lections advised patient she is on a trajectory to developing Type 2 diabetes, which runs strong in her family, and her labs are prediabetic range. sent pt multiple documents re: healthy eating, see pt docs. Also recommended consistent exercise including weights, lower heart rate than her current [employer] workouts at 160s. 05/26/2024 Hot flash, menopausal (ICD-10 - N95.1) Will lower the dose of estradiol until she sees the security systems sales representative. I will check with Dr. Baker to [...] Ashley Lyle's Inside Information podcast on the podSiteMinder gisselle. I also recommended Dr. Iraida Glynn's content, which is available as interviews on various YouTube interviews and podcast interviews, as well as her books, which can be found on fundfindr, etc. Her website is [email or web address] I also recommended Dr. Martha Broussard, orthopedic [...] 07/26/2024 Hot flash, menopausal (ICD-10 - N95.1) 10/21/2024 Abnormal glucose (ICD-10 - R73.09) 07/21/2024 BMI 35.0-35.9,adul t (ICD-10 - Z68.35) [...] HRT. sleeping better. will sched f/dk in nov to determine if any dose changes are [...] startup paperwork and schedule a medical appointment. [email or web address] lections InBody body composition analysis was discussed [...] counseling and coordinating care Plan Of Treatment Future Test Test Name Order Date COMPREHENSIVE METABOLIC PANEL 10/19/2024 HEMOGLOBIN A1c 10/19/2024 INSULIN 10/19/2024 Next Appt Details Provider Name:JACQUI Kenyon ROSAS I, 11/03/2024 10:00:00 AM, [address] [place] [address], [phone], Insurance Providers Payer Name Payer Address Payer Phone Subscriber Number Group Number Insured Name Patient Relationship to Insured Coverage Start Date Coverage End Date [facility] [address] [place] [address] [phone] [id number] Halie Goodson Self - patient is the insured Medical (General) History Medical History History ICD Code High Cholesterol GERD Gastritis Diverticulitis 2014 neg genetic testing for breast canc er Surgical History Surgery Date(Month/Year) 1996 Hospitalization History Reason Date(Month/Year) 1996
--- OUTSIDE RECORDS SUMMARY | 2024-10-26 09:14 | XMS_ITS ---
Author Organization [facility] Address [address] [place] [address] Care Team Providers Care Sawmill Equipment Operator Name Role Phone Armin Slater Primary Care Provider JACQUI Johnson Unavailable [phone] Allergies No Known Allergies REASON FOR VISIT lab f/u [email or web address] Medications Medication SIG (Take, Route, Fr equency, [...] Problem Status W/U Status Risk Notes Problem 623338801 BMI 35.0-35.9,ad ult (Z68.35) Active confirmed Vital Signs Height 63 in 07/21/2024 Weight 199 lbs 07/21/2024 BMI 35.25 kg/m2 07/21/2024 Encounters Encounter Location Date Provider [facility] [address] [place] [address] 07/21/2024 JACQUI BAKER Abnormal glucose R73.09 ; [...] her books, which can be found on [employer], etc. Her website is [email or web address] I also recommended Dr. Martha Broussard, orthopedic [...] her books, which can be found on [employer], etc. Her website is [email or web address] I also recommended Dr. Martha Broussard, orthopedic [...] Provider Name:JACQUI ROSAS I, 11/03/2024 10:00:00 AM, [address] [place] [address], [phone], Progress Notes * Paulie BELLRogelioOB:[birth year] (54 yo F)Acc No.[id number]:07/21/2024 Patient:?Halie BELL Provider:?Jacqui Baker MD :1970???Age:54 Y???Sex:Female D ate:07/21/2024 Address:[address] [place] [address] Pcp:Armin Slater Subjective: * Chief Complaints: * ???Lab f/u [email or web address] * HPI: ???:?This visit was conducted as a telemedicine appointment. The patient was physically located [at work] and I was located at home. The platform used was Rheonix, and the call length log is maintained on that platform. The patient understands that a telemedicine visit is protected by the usual doctor-patient relationship, HIPAA laws apply, insurance billing rules apply, in person visits are still an option, and I introduced myself. appt was scheduled to f/u on HRT sleeping great no hot flashes/night sweats/breast tenderness/vaginal bleeding just had breast MRI sees registered nurse practitioner in 2wks due to calcium score 183, [...] ROS IS ABOVE. * Medical History:? 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 at her 07/21 appt, a1c is a little better, nothing urgent Carisa Rivas 07/06/2024 04:18:30 PM EST >pt notified of the above Lab:INSULIN * Collection Date 07/02/2024 02/29/2024 Collection Time 08:37 AM 08:57 AM Order Date 06/24/2024 02/16/2024 Result: 7 6.4 INSULIN 7.0 (Ref Range: uIU/mL) 6.4 (Ref Range: uIU/mL) Notes: JACQUI BAKER 03:21:09 PM EST >frame cleaner we will discuss at her 07/21 appt, [...] Notes: JACQUI BAKER Kenyon 03:21:09 PM EST >frame cleaner we will discuss at her 07/21 appt, [...] Baker MD Date:?08/2024 Generated for Gokuli geoffrey/Audrag/eTransmitting on:?10/26/2024 09:13 AM EDT History and Physical Notes * HPI (History of Present Illness) Category Sub-Category Detail Notes Category Not es This visit was conducted as a telemedicine appointment. The patient was physically located [at work] and I was located at home. The platform used was Rheonix, and the call length log is maintained on that platform. The patient understands that a telemedicine visit is protected by the usual doctor-patient relationship, HIPAA laws apply, insurance billing rules apply, in person visits are still an option, and I introduced myself. appt was scheduled to f/u on HRT sleeping great no hot flashes/night sweats/breast tenderness/vaginal bleeding just had breast MRI sees registered nurse practitioner in 2wks due to calcium score 183, no cardiac symptoms PCP started her on monjauro 04/2024, 10lb weight loss (16 total) eating 120g protein/day strenght training and pilates, works out 4-5x/wk Examination Category Sub-Category Detail Notes Category Not es General Examination GENERAL APPEARANCE: in no ac wainwright distress, well developed, well nourished NECK/THYROID: , [...]
--- OUTSIDE RECORDS SUMMARY | 2024-10-26 09:14 | XMS_ITS ---
Author Organization [facility] Address [address] [place] [phone] Care Team Providers Care Automatic Pad Making Machine Operator Name Role Phone Armin Slater Primary Care Provider JACQUI Johnson Unavailable [phone] REASON FOR VISIT Estradiol increase Medications Medication SIG (Take, Route, Fr equency, Duration) Notes Start Date End Date Status Estradiol 0.05 MG/24HR 1 patch to skin T ransdermal Two times a Week for 30 days 07/27/2024 Act emanuel Encounters Encounter Location Date Provider Diagnosis [address] [address] 07/26/2024 JACQUI CRUZ Hot flash, menopausa l [...] Provider Name:JACQUI ROSAS I, 11/03/2024 10:00:00 AM, [address] [place] [address], [phone], Progress Notes * Colby BELLOB:[birth year] (54 yo F)Acc No.[id number]:07/26/2024 Patient:?Halie EBLL :1970???Age:54 Y???Sex:Female Address:[address] [place] [address], [address] * Refills? Stop Estradiol Patch Twice Weekly, 0.025 MG/24HR, Transdermal, 1 patch to skin, Two times a Week Start Estradiol Patch Twice Weekly, 0.05 MG/24HR, Transdermal, 8, 1 patch to skin, Two times a Week, 30 days, Refills=3 * true * Date:? Generated for Bruna hale/Ger/eTransmitting on:?10/26/2024 09:13 AM EDT
--- OUTSIDE RECORDS SUMMARY | 2024-10-26 09:14 | XMS_ITS ---
Author Organization [facility] Address [address] [place] [phone] Care Team Providers Care Medical Support Specialist Name Role Phone Armin Slater Primary Care Provider JACQUI Johnson Unavailable [phone] REASON FOR VISIT metformin refill Medications Medication SIG (Take, Route, Fr equency, Duration) Notes Start Date End Date Status metFORMIN HCl 500 MG 1 tablet with a marti l Orally Twice a day for 90 days 03/25/2024 Active Encounters Encounter Location Date Provider Diagnosis [address] [address] 10/21/2024 JACQUI CRUZ Abnormal glucose R73.09 Assessments Encounter Date Diagnosis (ICD Code) Assessment Notes Treatment Notes Treatment Clinical Notes Section Notes 10/21/2024 Abnormal glucose (ICD-10 - R73.09) Plan Of Treatment Medication Medication Name Sig Start Date Stop Date Notes metFORMIN HCl 500 MG 1 tablet with a marti l Orally Twice a day for 90 days 03/25/2024 Next Appt Details Provider Name:JACQUI ROSAS I, 11/03/2024 10:00:00 AM, [address] [place] [address], [phone], Progress Notes * ARABELLAPaulieRogelioOB:[birth year] (54 yo F)Acc No.[id number]:10/21/2024 Patient:?Halie BELL :1970???Age:54 Y???Sex:Female Address:[address] [place] [address], [address] * Refills? Refill metFORMIN HCl Tablet, 500 MG, Orally, 180, 1 tablet with a meal, Twice a day, 90 days, Refills=0 Subjective: * Chief Complaints: * ???Metformin refill * Medical History:? * Surgical History:? * Hospitalization/Major Diagno stic Procedure:? * Medications:? Objective: * Vitals:? * Physical Examination:? Assessment: * Assessment: 1.?Abnormal glucose - R73.09 (Primary)??? Plan: * Treatment: * Procedure Codes:? * true * Date:? Generated for Bruna hale/Ger/eTransmitting on:?10/26/2024 09:14 AM EDT
== END 2024-10-26 09:27 | disposition home or self-care (01) ==
LOC: HO.HGS 08:51
PROVIDERS: PCP Internal Medicine; Visit Provider Surgery
DX: Z91.89 Other specified personal risk factors, not elsewhere classified (principal)
CPT/HCPCS: 99213

== ENCOUNTER → 2024-10-26 08:51 | Outpatient (BNVA) | payer BC, SELFPAY | PROVIDERS: PCP Internal Medicine; Visit Provider Surgery ==